=== PATIENT | female | born 1935 | race Caucasian/White ===

== ENCOUNTER → 2017-01-08 | Outpatient (CLI) | payer OTHER ==
[~2017-01-08] MED LIST: CMD1 PO; FRRG PO; FSMUNK; GLCSC500400; MULT-506 PO; TRIATAB3 PO
--- NOTE | 2017-01-08 15:57 | MAMMOGRAPHY REPORT ---
BILATERAL DIGITAL SCREENING MAMMOGRAM TOMOSYNTHESIS WITH CAD: 01/08/2017 CLINICAL HISTORY: Routine screening. Patient has no complaints. TECHNIQUE: Breast tomosynthesis in addition to standard 2D mammography was performed. Current study was also evaluated with a Computer Aided Detection (CAD) system. COMPARISON: Comparison is made to exams dated: 01/06/2016 mammogram, 01/05/2015 mammogram, 01/04/2014 mammogram, 01/01/2013 mammogram, 12/31/2011 mammogram, and 12/28/2010 mammogram - [facility]. BREAST COMPOSITION: There are scattered areas of fibroglandular density in both breasts. FINDINGS: There are mild to moderate vascular calcifications in the breasts and diffuse rodlike secr etory calcifications in the right breast. No suspicious mass, architectural distortion or cluster o f microcalcifications is seen. IMPRESSION: ACR BI-RADS CATEGORY 1: NEGATIVE There is no mammographic evidence of malignancy. A 1 year screening mammogram is recommended. The p atient will receive written notification of the results. Approximately 10% of breast cancers are not detected with mammography. A negative mammographic repor t should not delay biopsy if a clinically suggestive mass is present. Nohemi Carballo M.D. ay/:01/08/2017 14:57:00 Java Consultant: Hannah Charles M, [facility] letter sent: Normal 1/2 BI-RADS Code: ACR BI-RADS Category 1: Negative
== END | disposition home or self-care (01) ==
LOC: C.MAMM 11:22
PROVIDERS: ATTEND Family Medicine
DX: Z12.31 Encounter for screening mammogram for malignant neoplasm of breast (principal)

== ENCOUNTER → 2018-01-10 | Outpatient (CLI) | payer OTHER ==
--- NOTE | 2018-01-13 08:07 | MAMMOGRAPHY REPORT ---
BILATERAL DIGITAL SCREENING MAMMOGRAM TOMOSYNTHESIS WITH CAD: 01/10/2018 CLINICAL HISTORY: Routine screening. Patient has no complaints. TECHNIQUE: Breast tomosynthesis in addition to standard 2D mammography was performed. Current study was also evaluated with a Computer Aided Detection (CAD) system. COMPARISON: Comparison is made to exams dated: 01/08/2017 mammogram, 01/12/2016 mammogram, 01/06/2016 m ammogram, 01/05/2015 mammogram, 01/04/2014 mammogram, and 01/01/2013 mammogram - [facility]. BREAST COMPOSITION: There are scattered areas of fibroglandular density in both breasts. FINDINGS: There are moderate vascular calcifications in the breasts. Diffuse rodlike secretory calci fications in the right breast. Stable asymmetry in the medial right breast. No new suspicious mass, architectural distortion or cluster of microcalcifications is seen. IMPRESSION: ACR BI-RADS CATEGORY 1: NEGATIVE There is no mammographic evidence of malignancy. A 1 year screening mammogram is recommended. The pa tient will receive written notification of the results. Approximately 10% of breast cancers are not detected with mammography. A negative mammographic report should not delay biopsy if a clinically suggestive mass is present. Nohemi Carballo M.D. ay/:01/10/2018 14:41:14 Card Dealer: Sylvie CONNORS(Hannah)(M), [facility] letter sent: Normal 1/2 BI-RADS Code: ACR BI-RADS Category 1: Negative
== END | disposition home or self-care (01) ==
LOC: C.MAMM 11:12
PROVIDERS: ATTEND Family Medicine
DX: Z12.31 Encounter for screening mammogram for malignant neoplasm of breast (principal)

== ENCOUNTER 2021-12-31 21:54 | Inpatient (IN) ==
[2021-12-31] MEDS ORDERED: ONDANSETRON INJ 2 MG/ML 2 ML VIAL IV STA (22:04)
[2021-12-31] MEDS ORDERED: fentaNYL citrate 100 MCG/2 ML VIAL IV STA (22:04)
--- NOTE | 2021-12-31 22:15 | Emergency Department Note ---
Impression & Plan Closed fracture of right hip, Bacteria in urine, Fall from standing ED Provider Note Name: ELIER PEDROZA Age: 86 Sex: F Arrives Via: Ambulance Informant: Patient, EMS, Daughters ED Provider: Adriano Montano MD Chief Complaint: Fall with hip pain Impression: As per impressions above Medical Decision Making: Pleasant 86-year-old female with history of hypertension otherwise quite healthy who lives alone and does quite well at home. She notes she was walking around in her socks and slipped on the floor landing on her right hip. X-rays reveal a right intertrochanteric comminuted fracture consistent with exam. Her pulses and neurovascular status are intact. She was given fentanyl with vast improvement in her pain. Preoperative labs and imaging unremarkable. She does have a significant amount of bacteria in her urine given her age and a Purdy is now in place I do think that it would be reasonable to start antibiotics and thus Rocephin was started. Hospitalist was consulted for further management patient is comfortable with plan for hospitalization. I did discuss at length CT imaging of the head and after discussing risks and benefits daughter and patient with agreeing that we will hold off on getting this until hospitalist evaluates her. She has no headache, neurologic deficits nor is she on any anticoagulation. Prior Medical Record and Triage/Nursing Notes reviewed by Me Additional history obtained from chart & daughters Differentials:Fracture, dislocation, contusion, intra-abdominal, pneumothorax, intrathoracic, intracranial, neurologic, compartment syndrome, rhabdomyolysis, as well as other pathologies. Vital Signs: reviewed and remarkable for no significant abnormalities Interventions: fentanyl 50mcg IV, rocephin 1gm iv, Labs:Reviewed and remarkable for bacteria in urine Imaging:Pelvis and femur x-ray on right reveal anterior trochanteric comminuted fracture. Chest x-ray unremarkable. Reads as per radiologist EKG:Per My Interpretation: Indication Fall: NSR 96 bpm, qtc 462. No Ectopy. No Ischemia. Compared to EKG 10/29/19, no significant changes. Consults:Dr Rylan Barbosa hospitalist Plan: Disposition:Hospitalization. Condition: Good History of Present Illness:86-year-old female arrives for evaluation of right hip pain. Patient was walking through her kitchen having just taken off her slippers when she slipped and fell. She landed on her right side. She notes immediate right hip pain with a loud crack. She denies any other head injury or other traumas. She denies any headache nor neck pain. She notes she is unable to get up due to pain. Pain is worse with movement. Better with being rest. She had no medications prior to arrival. No previous injury to right hip or thigh. She denies frequent falls or generalized weakness recently. She states there was no inciting event prior to her fall other than slipping. She remembers the entire event. Patient denies being on any blood thinners. She denies any aspirin or Plavix use. Patient denies any recent chest pain, shortness breath, nausea, vomiting, back pain, urinary/bowel symptoms, headaches, neck pain, abdominal pain or other symptoms. She has had no recent bleeding or bruising. Patient states she is usually active. She has had a previous left knee replacement by Dr. Clark. ROS: See above HPI for pertinent positives & negatives. A total of 10 systems reviewed and were otherwise negative. Past Medical History:High blood pressure Past Surgical History:Left knee replacement Family History:States family is healthy Social History:Patient denies alcohol or drug use. Denies tobacco use. Home Medications:See Below Allergies:NSAIDS Vitals:Blood Pressure: 130/86, Pulse 94, RR 20, T 36.6C, O2 99% on RA Physical Exam: GENERAL: Patient is uncomfortable appearing and in moderate distress. HEAD: AT/NC EYES: No scleral icterus, unremarkable pupils. ENT: Mucous membranes moist, no nasal congestion. NECK: No masses appreciated, nomeningismus, trachea is midline. No midline TTP RESPIRATORY: No dyspnea. Clear to auscultation and equal bilaterally. No wheeze, no rhonchi. CARDIOVASCULAR: Regular rate and rhythm.No murmurs, rubs, gallops appreciated. GASTROINTESTINAL: Abdomen soft, non-tender, no peritonitis.Bowel sounds positive.No masses appreciated. BACK: No midline tenderness, no CVA tenderness EXTREMITIES: Swelling and spasm proximal right thigh with severe pain on slight movement of hip/knee. Shortened externally rotated right leg from hip down. Pulses and sensation intact distally. Otherwise normal motion all extremities, no cyanosis, no edema. NEUROLOGIC: Alert and oriented, no acute motor or sensory deficits, no focal weakness, cranial nerves grossly intact. SKIN: No rash, no jaundice, no diaphoresis. PSYCH: Appropriate GCS: 15 ED Course: Times/Reassessments: Patient is comfortable after fentanyl. She is agreeable to hospitalization. She is neurologically intact without headache Adriano Montano MD Past Med/Surg History Medical History (Updated 12/31/21 @ 23:51 by Adriano Montano MD) Encounter for pre-operative examination Food impaction of esophagus HTN (hypertension) Surgical History Knee joint replacement status Family History Other Family history non-contributory Social History Smoking Status: Never smoker Preferred Language: Estonian Visual Impairment: No Limitations Feels Safe at Home: Yes Allergies Allergies Allergy/AdvReac Type Severity Reaction Status Date / Time NSAIDS (Non-Steroidal AdvReac NOT true Unverified 12/31/21 23:07 Anti-Inflamma ADR-NO NSAIDS/Toradol per ortho [id number] 05/2012 Home Meds Home Medications Medication Instructions Recorded Confirmed multivitamin 1 tab PO DAILY #0 tab 04/24/12 12/31/21 triamterene 37.5 1 tab PO DAILY #0 tab 05/30/12 12/31/21 mg-hydrochlorothiazide 25 mg tablet Results & Data (ED) Vital Signs Vital Signs - 24 hr 12/31/21 22:03 12/31/21 22:23 12/31/21 22:58 Temperature 36.6 C Temperature Source Oral Pulse Rate 94 H Pulse Rate [Apical] 78 93 H Respiratory Rate 20 20 20 Respiratory Effort / Characteristics Non-Labored Spontaneous Non-Labored Spontaneous Non-Labored Spontaneous Respiratory Depth Normal Normal Normal Respiratory Pattern Regular Regular Blood Pressure 130/86 Blood Pressure [Right Arm] 130/86 130/86 Blood Pressure Mean 100 Blood Pressure Mean [Right Arm] 100 100 Blood Pressure Position Lying Blood Pressure Position [Right Arm] Sitting Sitting Pulse Oximetry 99 98 96 Oxygen Delivery Method Room Air Room Air Room Air Sepsis Recent Fever Within 48 Hours No Sepsis New/Unexplained Change in Mental Status No Sepsis Action Taken by Nursing No Action Required Laboratory Data Result diagrams: 12/31/21 22:11 12/31/21 22:11 Lab Results 12/31/21 12/31/21 12/31/21 Range/Units 22:11 22:11 22:11 WBC 7.40 (4.8-10.8) K/uL RBC 4.54 (4.2-5.4) M/uL Hgb 13.5 (12.0-16.0) g/dL Hct 41.3 (37-47) % MCV 91.0 (80-100) fL MCH 29.7 (25-34) pg MCHC 32.7 (32-36) g/dL RDW Std Deviation 46.1 (36.4-46.3) fL RDW Coeff of Gerson 13.9 (11.5-14.5) % Plt Count 161 (130-400) K/uL MPV 11.3 H (7.4-10.4) fL Immature Gran % (Auto) 0.1 % Neut % (Auto) 65.9 % Lymph % (Auto) 23.2 % Hyde % (Auto) 8.6 % Eos % (Auto) 1.8 % Baso % (Auto) 0.4 % Neut # (Auto) 4.87 (1.4-6.5) K/uL Lymph # (Auto) 1.72 (1.2-3.4) K/uL Hyde # (Auto) 0.64 H (0.11-0.59) K/uL Eos # (Auto) 0.13 (0-0.5) K/uL Baso # (Auto) 0.03 (0-0.2) K/uL Immature Gran # (Auto) 0.01 (0.00-0.02) K/uL PT 10.4 (9.0-12.0) Seconds INR 1.0 (0.9-1.1) APTT 22.1 (21.0-31.0) Seconds PTT Ratio 0.8 Sodium 140 (136-145) mmol/L Potassium 3.9 (3.5-5.1) mmol/L Chloride 104 (98-107) mmol/L Carbon Dioxide 28 (21-32) mmol/L Anion Gap 8 (3-11) BUN 28 H (6-23) mg/dl Creatinine 1.19 (0.6-1.2) mg/dl Est Cr Clr Drug Dosing 29.9 ml/min Est GFR ( Amer) 48.2 ml/min Est GFR (Non-Af Amer) 41.6 ml/min BUN/Creatinine Ratio 23.5 H (10-20) Glucose 173 H (70-99(Fasting)) mg/dl Calcium 9.8 (8.5-10.1) mg/dl Magnesium (1.7-2.4) mg/dl Total Bilirubin 0.5 (0.2-1.0) mg/dl AST 18 (13-39) U/L ALT 12 (7-52) U/L Alkaline Phosphatase 45 (34-104) U/L Total Protein 6.8 (6.0-8.3) gm/dl Albumin 4.1 (3.4-5.0) gm/dl Globulin 2.7 (2.5-4.0) gm/dl Albumin/Globulin Ratio 1.5 (0.9-2) Urine Color Urine Appearance (Clear) Urine pH (4.5-7.5) Ur Specific [place] (1.000-1.030) Urine Protein (Negative) Urine Glucose (UA) (Negative) Urine Ketones (Negative) Urine Blood (Negative) Urine Nitrite (Negative) Urine Bilirubin (Negative) Urine Urobilinogen (Negative) Ur Leukocyte Esterase (Negative) Urine WBC (Auto) (0-5) /hpf Urine RBC (Auto) (0-4) /hpf U Hyaline Cast (Auto) (0-5) /lpf U Epithel Cells (Auto) (0-5) /lpf Urine Bacteria (Auto) (Negative) SARS-CoV-2, RNA, NAAT (NEGATIVE) 12/31/21 12/31/21 12/31/21 Range/Units 22:11 22:11 23:09 WBC (4.8-10.8) K/uL RBC (4.2-5.4) M/uL Hgb (12.0-16.0) g/dL Hct (37-47) % MCV (80-100) fL MCH (25-34) pg MCHC (32-36) g/dL RDW Std Deviation (36.4-46.3) fL RDW Coeff of Gerson (11.5-14.5) % Plt Count (130-400) K/uL MPV (7.4-10.4) fL Immature Gran % (Auto) % Neut % (Auto) % Lymph % (Auto) % Hyde % (Auto) % Eos % (Auto) % Baso % (Auto) % Neut # (Auto) (1.4-6.5) K/uL Lymph # (Auto) (1.2-3.4) K/uL Hyde # (Auto) (0.11-0.59) K/uL Eos # (Auto) (0-0.5) K/uL Baso # (Auto) (0-0.2) K/uL Immature Gran # (Auto) (0.00-0.02) K/uL PT (9.0-12.0) Seconds INR (0.9-1.1) APTT (21.0-31.0) Seconds PTT Ratio Sodium (136-145) mmol/L Potassium (3.5-5.1) mmol/L Chloride (98-107) mmol/L Carbon Dioxide (21-32) mmol/L Anion Gap (3-11) BUN (6-23) mg/dl Creatinine (0.6-1.2) mg/dl Est Cr Clr Drug Dosing ml/min Est GFR ( Amer) ml/min Est GFR (Non-Af Amer) ml/min BUN/Creatinine Ratio (10-20) Glucose (70-99(Fasting)) mg/dl Calcium (8.5-10.1) mg/dl Magnesium 1.9 (1.7-2.4) mg/dl Total Bilirubin (0.2-1.0) mg/dl AST (13-39) U/L ALT (7-52) U/L Alkaline Phosphatase (34-104) U/L Total Protein (6.0-8.3) gm/dl Albumin (3.4-5.0) gm/dl Globulin (2.5-4.0) gm/dl Albumin/Globulin Ratio (0.9-2) Urine Color Yellow Urine Appearance Clear (Clear) Urine pH 6.5 (4.5-7.5) Ur Specific [place] 1.016 (1.000-1.030) Urine Protein Negative (Negative) Urine Glucose (UA) Negative (Negative) Urine Ketones Negative (Negative) Urine Blood Negative (Negative) Urine Nitrite Positive A (Negative) Urine Bilirubin Negative (Negative) Urine Urobilinogen Negative (Negative) Ur Leukocyte Esterase Negative (Negative) Urine WBC (Auto) 1-5 (0-5) /hpf Urine RBC (Auto) 0-4 (0-4) /hpf U Hyaline Cast (Auto) 1-5 (0-5) /lpf U Epithel Cells (Auto) 10-20 H (0-5) /lpf Urine Bacteria (Auto) 4+ H (Negative) SARS-CoV-2, RNA, NAAT NEGATIVE (NEGATIVE) Administered Medications Lactated Ringer's (Lr) 1,000 mls @ 60 mls/hr IV .[id number] ONE Stop: 01/01/22 16:28 Last Admin: 01/01/22 00:26 Dose: 60 mls/hr Documented by: [id number] Discontinued Medications Fentanyl Citrate (Fentanyl Citrate 100 Mcg/2 Ml Vial) 50 mcg IV NOW STA Stop: 12/31/21 22:05 Last Admin: 12/31/21 22:11 Dose: 50 mcg Documented by: [id number] Ceftriaxone Sodium (Rocephin) 1,000 mg in 50 mls @ 100 mls/hr IV NOW STA Stop: 01/01/22 00:03 Last Admin: 01/01/22 00:25 Dose: 100 mls/hr Documented by: [id number] Ondansetron HCl (Ondansetron Inj 2 Mg/Ml 2 Ml Vial) 4 mg IV NOW STA Stop: 12/31/21 22:05 Last Admin: 12/31/21 22:11 Dose: 4 mg Documented by: [id number] Imaging Data Radiologist's Impression: Chest X-Ray 12/31/21 22:04 XR chest 1V portable CLINICAL HISTORY: fall, hip fracture. Evaluate cardiopulmonary status COMPARISON STUDY: No previous studies for comparison. TECHNIQUE: 1 view of the chest FINDINGS: Single frontal view of the chest demonstrates the cardiomediastinal silhouette to be within normal limits. There is evidence for hiatal hernia in retrocardiac space. The lungs are clear of alveolar opacities. There is no evidence for pleural effusion. There is no evidence for vascular congestion. There is no acute osseous pathology. IMPRESSION: No acute cardiopulmonary disease. Hiatal hernia. ACT 112: Negative or not required by law. Electronically signed by: Ozzie Do M.D. 12/31/2021 10:47 PM Femur X-Ray 12/31/21 22:04 XR femur RT 2V routine CLINICAL HISTORY: right hip/femur pain. Status post fall COMPARISON STUDY: No previous studies for comparison. TECHNIQUE: AP and lateral right femur views FINDINGS: Bones: There is a comminuted, intratrochanteric fracture of the left femoral neck. The lesser trochanter is medially displaced. There is coxa varus deformity present. There is no lytic or blastic lesion. Joints: The femoral head maintains its anatomic position within the acetabulum. There is moderate to marked narrowing at the knee joint. Soft tissues: There is no focal soft tissue abnormality. There is no radiopaque foreign body. IMPRESSION: 1. Comminuted, intratrochanteric fracture of the right femoral neck with coxa varus deformity. ACT 112: Negative or not required by law. Electronically signed by: Ozzie Do M.D. 12/31/2021 10:45 PM Pelvis X-Ray 12/31/21 22:04 XR pelvis 1-2V routine CLINICAL HISTORY: fall right thigh pain. Status post fall COMPARISON STUDY: Right femur films from the same date TECHNIQUE: [A single AP radiograph was obtained. FINDINGS: There is again a comminuted, intratrochanteric fracture of the right femoral nec k. The femoral head maintains its anatomic position within the acetabulum. Coxa varus deformity is present related to the fracture. The SI joints are intact bilaterally. There is mild to moderate narrowing of the left hip joint space. The remaining visualized bones of the pelvis are intact. No focal soft tissue abnormalities identified. IMPRESSION: 1. Comminuted, intratrochanteric fracture of the right femoral neck with coxa varus deformity. ACT 112: Negative or not required by law. Electronically signed by: Ozzie Do M.D. 12/31/2021 10:47 PM Discharge Plan Visit Data Chief Complaint: Fall Stated Complaint: Fall ED Provider: Adriano Montano Discharge Problem: Closed fracture of right hip, Bacteria in urine, Fall from standing Forms Stand Alone Forms: [employer] Prescriptions Prescriptions: No Action multivitamin Tablet 1 tab PO DAILY Qty: 0 RF: 0 triamterene-hydrochlorothiazid 37.5-25 mg Tablet 1 tab PO DAILY Qty: 0 RF: 0 Referrals Referrals: Kwesi Orozco MD [Primary Care Provider] - Discharge Problem: Closed fracture of right hip Qualifiers: Encounter type: initial encounter Qualified Code(s): S72.001A - Fracture of unspecified part of neck of right femur, initial encounter for closed fracture Fall from standing Qualifiers: Encounter type: initial encounter Qualified Code(s): W19.XXXA - Unspecified fall, initial encounter
[2021-12-31 22:23] LABS: Basophils # (auto) 0.03 K/uL (0-0.2); Basophils % (auto) 0.4 %; Eosinophils # (auto) 0.13 K/uL (0-0.5); Eosinophils % (auto) 1.8 %; Hematocrit (blood only) 41.3 % (37-47); Hemoglobin 13.5 g/dL (12.0-16.0); Immature Granulocytes # (auto) 0.01 K/uL (0.00-0.02); Immature Granulocytes % (auto) 0.1 %; Lymphocytes # (auto) 1.72 K/uL (1.2-3.4); Lymphocytes % (auto) 23.2 %; Mean Corpuscular Hemoglobin 29.7 pg (25-34); Mean Corpuscular Hgb Conc 32.7 g/dL (32-36); Mean Platelet Volume 11.3 fL (7.4-10.4); Monocytes # (auto) 0.64 K/uL (0.11-0.59); Monocytes % (auto) 8.6 %; Neutrophils # (auto) 4.87 K/uL (1.4-6.5); Neutrophils % (auto) 65.9 %; Platelet Count 161 K/uL (130-400); RDW Coefficient of Variation 13.9 % (11.5-14.5); RDW Standard Deviation 46.1 fL (36.4-46.3); Red Blood Count 4.54 M/uL (4.2-5.4)
[2021-12-31 22:39] LABS: Partial Thromboplastin Ratio 0.8; Partial Thromboplastin Time 22.1 Seconds (21.0-31.0); Prothrombin Time 10.4 Seconds (9.0-12.0)
[2021-12-31 22:40] LABS: Albumin Globulin Ratio 1.5 (0.9-2); Albumin Level 4.1 gm/dl (3.4-5.0); BUN Creatinine Ratio 23.5 (10-20); Bilirubin,Total 0.5 mg/dl (0.2-1.0); Calcium 9.8 mg/dl (8.5-10.1); Creatinine Clr Calc Pharmacy 29.9 ml/min; Est GFR (African American) 48.2 ml/min; Est GFR (Non-African American) 41.6 ml/min; Globulin 2.7 gm/dl (2.5-4.0); Potassium 3.9 mmol/L (3.5-5.1); Total Protein 6.8 gm/dl (6.0-8.3)
--- NOTE | 2021-12-31 22:46 | XRay Report ---
XR femur RT 2V routine CLINICAL HISTORY: right hip/femur pain. Status post fall COMPARISON STUDY: No previous studies for comparison. TECHNIQUE: AP and lateral right femur views FINDINGS: Bones: There is a comminuted, intratrochanteric fracture of the left femoral neck. The lesser trochan ter is medially displaced. There is coxa varus deformity present. There is no lytic or blastic lesion . Joints: The femoral head maintains its anatomic position within the acetabulum. There is moderate to marked narrowing at the knee joint. Soft tissues: There is no focal soft tissue abnormality. There is no radiopaque foreign body. IMPRESSION: 1. Comminuted, intratrochanteric fracture of the right femoral neck with coxa varus deformity. ACT 112: Negative or not required by law. Electronically signed by: Ozzie Do M.D. 12/31/2021 10:45 PM
--- NOTE | 2021-12-31 22:48 | XRay Report ---
XR pelvis 1-2V routine CLINICAL HISTORY: fall right thigh pain. Status post fall COMPARISON STUDY: Right femur films from the same date TECHNIQUE: [A single AP radiograph was obtained. FINDINGS: There is again a comminuted, intratrochanteric fracture of the right femoral neck. The femoral head m aintains its anatomic position within the acetabulum. Coxa varus deformity is present related to the fracture. The SI joints are intact bilaterally. There is mild to moderate narrowing of the left hip j oint space. The remaining visualized bones of the pelvis are intact. No focal soft tissue abnormaliti es identified. IMPRESSION: 1. Comminuted, intratrochanteric fracture of the right femoral neck with coxa varus deformity. ACT 112: Negative or not required by law. Electronically signed by: Ozzie Do M.D. 12/31/2021 10:47 PM
--- NOTE | 2021-12-31 22:49 | XRay Report ---
XR chest 1V portable CLINICAL HISTORY: fall, hip fracture. Evaluate cardiopulmonary status COMPARISON STUDY: No previous studies for comparison. TECHNIQUE: 1 view of the chest FINDINGS: Single frontal view of the chest demonstrates the cardiomediastinal silhouette to be within normal li mits. There is evidence for hiatal hernia in retrocardiac space. The lungs are clear of alveolar opac ities. There is no evidence for pleural effusion. There is no evidence for vascular congestion. There is no acute osseous pathology. IMPRESSION: No acute cardiopulmonary disease. Hiatal hernia. ACT 112: Negative or not required by law. Electronically signed by: Ozzie Do M.D. 12/31/2021 10:47 PM
--- NOTE | 2021-12-31 23:04 | History & Physical Report ---
Date of Service December 31, 2021 Assessment & Plan (1) Closed fracture of right hip: Plan: Secondary to mechanical fall hypertension, stable Asymptomatic pyuria Hyperglycemia rule out DM Possible pulmonary nodule, incidental finding on CT chest from 2019 ER visit [facility] Orthopedics consult RE right hip fracture Revised Cardiac Risk Index (RCRI): 1. High-risk type of surgery (examples include vascular and any open intraperitoneal or intrathoracic procedures). No 2. History of ischemic heart disease (history of myocardial infarction or positive exercise test, current compliant of chest pain considered to be secondary to myocardial ischemia, use of nitrate therapy, or ECG with pathological Q waves; do not count prior coronary revascularization procedure unless one of the other criteria for ischemic heart disease is present). No 3. History of heart failure. No 4. History of cerebrovascular disease. No 5. Diabetes mellitus requiring treatment with insulin. No 6. Preoperative serum creatinine >2.0. No Pt has revised cardiac index score of 0 points. (Class I Risk.) 3.9% % 30-day risk of , [place], or cardiac arrest. Acceptable risk for cardiac complications resulting from prospective procedure if recommended by Orthopedics. Hold home diuretic for now while n.p.o. Hold off on additional antibiotics for now for asymptomatic pyuria. Check hemoglobin A1c. Outpatient overdue follow-up imaging for possible pulmonary nodule from 2019 CT chest DVT prophylaxis. SCDs Re: Possible procedure Recommend pharmacologic anticoagulation once bleeding risk is deemed to be minimal and negligible pending Orthopedics evaluation. Full code. Patient's daughter requesting updates for providers. Ms. Brissa Kapoor, contact #[phone]. Text document was generated using [employer] voice recognition software. It may contain grammatical or spelling errors. Kindly contact undersigned for clarification of any documentation item in question. History of Present Illness Chief Complaint: Fall, right hip pain Primary Care Provider: Kwesi Orozco MD History obtained from patient, family, and records. Medical history significant for hypertension, GERD, osteoarthritis Last confinement 2011 for elective left total knee arthroplasty. Patient was walking to her kitchen today when she slipped and fell on her right side. Achy right hip pain after patient heard a loud crack. Patient unable to get up from the floor. No head trauma, LOC, chest pain, shortness of breath. No abdominal pain or dysuria symptoms. Patient brought to the ER for evaluation. IV ceftriaxone given for pyuria. MEDICAL HISTORY: As above. Focal multilobular solid 8 mm nodule versus cluster of micronodules in the lateral basal left lower lobe. Follow-up per Fleischner Society 2017 criteria as if for an 8 mm solid nodule from CAT scan from 2019 [facility] ER visit SURGICAL HISTORY: Lipoma surgery, Ovarian cysts surgery, Bilateral tubal ligation, knee surgery, ear surgery FAMILY HISTORY: High blood pressure. DM, heart disease PERSONAL SOCIAL HISTORY: Nonsmoker. No chronic intake of alcoholic beverages. 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 Baseline Functionality : Still able to do housework at home without rest/exertional chest pain, S OB prior to injury Allergies Allergy/AdvReac Type Severity Reaction Status Date / Time NSAIDS (Non-Steroidal AdvReac NOT true Unverified 12/31/21 23:07 Anti-Inflamma ADR-NO NSAIDS/Toradol per ortho [id number] 05/2012 Home Medications Medication Instructions Recorded Confirmed Type multivitamin 1 tab PO DAILY #0 tab 04/24/12 12/31/21 History triamterene 37.5 1 tab PO DAILY #0 tab 05/30/12 12/31/21 History mg-hydrochlorothiazide 25 mg tablet Past Med/Surg History Medical History Encounter for pre-operative examination Food impaction of esophagus HTN (hypertension) Surgical History Knee joint replacement status Family History Other Family history non-contributory Social History Smoking Status: Never smoker Second Hand Exposure: No; Do You Dip or Chew Tobacco: No; Tobacco Cessation Education Requested by Patient: No Hx Alcohol Use: Yes Alcohol type: wine Hx Substance Use: No Preferred Language: Turkmen Communication Ability: Effective Visual Impairment: No Limitations Principal Ios Developer Required: No Beliefs That Will Affect Care: None Current Living Situation: Alone Other Information That Helps Us Care for You: No Feels Safe at Home: Yes Safety Concerns: Feels Safe At This Time Assistive Devices: Glasses and Hearing Aid - Right Review of Systems Review of Systems: As per HPI, all 10 systems reviewed, all other ROS negative Physical Exam Physical Exam: GENERAL: Comfortable, pleasant, no respiratory distress SKIN: Normal color, warm HEENT: [place] palpebral conjunctivae, no ptosis, dry buccal mucosa NECK : Supple, no tenderness CHEST : CTA, no tenderness HEART : RRR, no obvious murmurs ABDOMEN: Some distention, nontender EXTREMITIES : min LE swelling, right hip rotation and tenderness NEUROLOGIC : Coherent, no facial asymmetry, no other gross focality Results & Data Results & Data ([facility]) Vital Signs (Past 12 Hours) Vital Signs Temp Pulse Pulse Resp BP BP Pulse Ox 12/31/21 22:58 93 H 20 130/86 96 12/31/21 22:23 78 20 130/86 98 12/31/21 22:03 36.6 C 94 H 20 130/86 99 Laboratory Results Laboratory Results WBC 10.53 K/uL (4.8-10.8) 01/01/22 06:39 RBC 3.91 M/uL (4.2-5.4) L 01/01/22 06:39 Hgb 11.4 g/dL (12.0-16.0) L 01/01/22 06:39 Hct 34.9 % (37-47) L 01/01/22 06:39 MCV 89.3 fL (80-100) 01/01/22 06:39 MCH 29.2 pg (25-34) 01/01/22 06:39 MCHC 32.7 g/dL (32-36) 01/01/22 06:39 RDW Std Deviation 44.8 fL (36.4-46.3) 01/01/22 06:39 RDW Coeff of [place] 13.8 % (11.5-14.5) 01/01/22 06:39 Plt Count 145 K/uL (130-400) 01/01/22 06:39 MPV 11.3 fL (7.4-10.4) H 01/01/22 06:39 Immature Gran % (Auto) 0.2 % 01/01/22 06:39 Neut % (Auto) 83.5 % 01/01/22 06:39 Lymph % (Auto) 9.5 % 01/01/22 06:39 [place] % (Auto) 6.6 % 01/01/22 06:39 Eos % (Auto) 0.0 % 01/01/22 06:39 Baso % (Auto) 0.2 % 01/01/22 06:39 Neut # (Auto) 8.80 K/uL (1.4-6.5) H 01/01/22 06:39 Lymph # (Auto) 1.00 K/uL (1.2-3.4) L 01/01/22 06:39 [place] # (Auto) 0.69 K/uL (0.11-0.59) H 01/01/22 06:39 Eos # (Auto) 0.00 K/uL (0-0.5) 01/01/22 06:39 Baso # (Auto) 0.02 K/uL (0-0.2) 01/01/22 06:39 Immature Gran # (Auto) 0.02 K/uL (0.00-0.02) 01/01/22 06:39 PT 10.4 Seconds (9.0-12.0) 12/31/21 22:11 INR 1.0 (0.9-1.1) 12/31/21 22:11 APTT 22.1 Seconds (21.0-31.0) 12/31/21 22:11 PTT Ratio 0.8 12/31/21 22:11 Sodium 140 mmol/L (136-145) 12/31/21 22:11 Potassium 3.9 mmol/L (3.5-5.1) 12/31/21 22:11 Chloride 104 mmol/L (98-107) 12/31/21 22:11 Carbon Dioxide 28 mmol/L (21-32) 12/31/21 22:11 Anion Gap 8 (3-11) 12/31/21 22:11 BUN 28 mg/dl (6-23) H 12/31/21 22:11 Creatinine 1.19 mg/dl (0.6-1.2) 12/31/21 22:11 Est Cr Clr Drug Dosing 29.9 ml/min 12/31/21 22:11 Est GFR ( Amer) 48.2 ml/min 12/31/21 22:11 Est GFR (Non-Af Amer) 41.6 ml/min 12/31/21 22:11 BUN/Creatinine Ratio 23.5 (10-20) H 12/31/21 22:11 Glucose 173 mg/dl (70-99(Fasting)) H 12/31/21 22:11 Estimat Average Glucose 123 mg/dl 12/31/21 22:04 Hemoglobin A1c 5.9 % (4.5-5.6) H 12/31/21 22:04 Calcium 9.8 mg/dl (8.5-10.1) 12/31/21 22:11 Magnesium 1.9 mg/dl (1.7-2.4) 12/31/21 22:11 Total Bilirubin 0.5 mg/dl (0.2-1.0) 12/31/21 22:11 AST 18 U/L (13-39) 12/31/21 22:11 ALT 12 U/L (7-52) 12/31/21 22:11 Alkaline Phosphatase 45 U/L (34-104) 12/31/21 22:11 Total Protein 6.8 gm/dl (6.0-8.3) 12/31/21 22:11 Albumin 4.1 gm/dl (3.4-5.0) 12/31/21 22:11 Globulin 2.7 gm/dl (2.5-4.0) 12/31/21 22:11 Albumin/Globulin Ratio 1.5 (0.9-2) 12/31/21 22:11 Urine Color Yellow 12/31/21 23:09 Urine Appearance Clear (Clear) 12/31/21 23:09 Urine pH 6.5 (4.5-7.5) 12/31/21 23:09 Ur Specific [place] 1.016 (1.000-1.030) 12/31/21 23:09 Urine Protein Negative (Negative) 12/31/21 23:09 Urine Glucose (UA) Negative (Negative) 12/31/21 23:09 Urine Ketones Negative (Negative) 12/31/21 23:09 Urine Blood Negative (Negative) 12/31/21 23:09 Urine Nitrite Positive (Negative) A 12/31/21 23:09 Urine Bilirubin Negative (Negative) 12/31/21 23:09 Urine Urobilinogen Negative (Negative) 12/31/21 23:09 Ur Leukocyte Esterase Negative (Negative) 12/31/21 23:09 Urine WBC (Auto) 1-5 /hpf (0-5) 12/31/21 23:09 Urine RBC (Auto) 0-4 /hpf (0-4) 12/31/21 23:09 U Hyaline Cast (Auto) 1-5 /lpf (0-5) 12/31/21 23:09 U Epithel Cells (Auto) 10-20 /lpf (0-5) H 12/31/21 23:09 Urine Bacteria (Auto) 4+ (Negative) H 12/31/21 23:09 SARS-CoV-2, RNA, NAAT NEGATIVE (NEGATIVE) 12/31/21 22:11 Blood Type A Positive 01/01/22 06:39 Antibody Screen NEGATIVE 01/01/22 06:39 Impressions Chest X-Ray 12/31/21 22:04 XR chest 1V portable CLINICAL HISTORY: fall, hip fracture. Evaluate cardiopulmonary status COMPARISON STUDY: No previous studies for comparison. TECHNIQUE: 1 view of the chest FINDINGS: Single frontal view of the chest demonstrates the cardiomediastinal silhouette to be within normal limits. There is evidence for hiatal hernia in retrocardiac space. The lungs are clear of alveolar opacities. There is no evidence for pleural effusion. There is no evidence for vascular congestion. There is no acute osseous pathology. IMPRESSION: No acute cardiopulmonary disease. Hiatal hernia. ACT 112: Negative or not required by law. Electronically signed by: Ozzie Do M.D. 12/31/2021 10:47 PM Femur X-Ray 12/31/21 22:04 XR femur RT 2V routine CLINICAL HISTORY: right hip/femur pain. Status post fall COMPARISON STUDY: No previous studies for comparison. TECHNIQUE: AP and lateral right femur views FINDINGS: Bones: There is a comminuted, intratrochanteric fracture of the left femoral neck. The lesser trochanter is medially displaced. There is coxa varus deformity present. There is no lytic or blastic lesion. Joints: The femoral head maintains its anatomic position within the acetabulum. There is moderate to marked narrowing at the knee joint. Soft tissues: There is no focal soft tissue abnormality. There is no radiopaque foreign body. IMPRESSION: 1. Comminuted, intratrochanteric fracture of the right femoral neck with coxa varus deformity. ACT 112: Negative or not required by law. Electronically signed by: Ozzie Do M.D. 12/31/2021 10:45 PM Pelvis X-Ray 12/31/21 22:04 XR pelvis 1-2V routine CLINICAL HISTORY: fall right thigh pain. Status post fall COMPARISON STUDY: Right femur films from the same date TECHNIQUE: [A single AP radiograph was obtained. FINDINGS: There is again a comminuted, intratrochanteric fracture of the right femoral neck. The femoral head maintains its anatomic position within the acetabulum. Coxa varus deformity is present related to the fracture. The SI joints are intact bilaterally. There is mild to moderate narrowing of the left hip joint space. The remaining visualized bones of the pelvis are intact. No focal soft tissue abnormalities identified. IMPRESSION: 1. Comminuted, intratrochanteric fracture of the right femoral neck with coxa varus deformity. ACT 112: Negative or not required by law. Electronically signed by: Ozzie Do M.D. 12/31/2021 10:47 PM Diagnostic Findings EKG as per interpretation: Rate 95, NSR, LAD, LAFB, T wave abnormalities inferior leads (1) Closed fracture of right hip Encounter type: initial encounter Qualified Code(s): S72.001A - Fracture of unspecified part of neck of right femur, initial encounter for closed fracture
[2021-12-31 23:22] LABS: Appearance Urine Clear (Clear); Bacteria Urine Automated 4+ (Negative); Bilirubin Urine Negative (Negative); Blood Urine Negative (Negative); Color Urine Yellow; Glucose Urine UA Negative (Negative); Ketones Urine Negative (Negative); Leukocyte Esterase Urine Negative (Negative); Nitrite Urine Positive (Negative); Protein Urine Negative (Negative); RBC Urine Automated 0-4 /hpf (0-4); Specific Gravity Urine 1.016 (1.000-1.030); Urobilinogen Urine Negative (Negative); pH Urine 6.5 (4.5-7.5)
[2021-12-31] MEDS ORDERED: cefTRIAXone SODIUM 1,000 MG/50 ML BAG IV STA (23:34)
[2021-12-31] MEDS ORDERED: LACTATED RINGER'S 1,000 ML IV ONE (23:49)
[2021-12-31] MEDS ORDERED: traMADol HCL 50 MG TABLET PO PRN (23:54)
[2021-12-31] MEDS ORDERED: PROMETHAZINE HCL 12.5 MG in SODIUM CHLORIDE 0.9% 50 ML IV PRN (23:54)
[2021-12-31] MEDS ORDERED: MoRPHine SULFATE 2 MG/ML CARP IV PRN (23:54)
[2021-12-31] MEDS ORDERED: ACETAMINOPHEN 325 MG TAB PO PRN (23:54)
[2022-01-01] MEDS ORDERED: bisacodyL 10 MG SUPP PR PRN (00:08)
[2022-01-01] MEDS ORDERED: NALOXONE HCL 0.4 MG/1 ML VIAL/CARP IV PRN ×2 (00:08→15:58)
[2022-01-01 07:20] LABS: Basophils # (auto) 0.02 K/uL (0-0.2); Basophils % (auto) 0.2 %; Hematocrit (blood only) 34.9 % (37-47); Hemoglobin 11.4 g/dL (12.0-16.0); Immature Granulocytes # (auto) 0.02 K/uL (0.00-0.02); Immature Granulocytes % (auto) 0.2 %; Lymphocytes % (auto) 9.5 %; Mean Corpuscular Hemoglobin 29.2 pg (25-34); Mean Corpuscular Hgb Conc 32.7 g/dL (32-36); Mean Corpuscular Volume 89.3 fL (80-100); Mean Platelet Volume 11.3 fL (7.4-10.4); Monocytes # (auto) 0.69 K/uL (0.11-0.59); Monocytes % (auto) 6.6 %; Neutrophils % (auto) 83.5 %; Platelet Count 145 K/uL (130-400); RDW Coefficient of Variation 13.8 % (11.5-14.5); RDW Standard Deviation 44.8 fL (36.4-46.3); Red Blood Count 3.91 M/uL (4.2-5.4); White Blood Count 10.53 K/uL (4.8-10.8)
[2022-01-01] MEDS: MULTIVITAMIN TAB PO SCH (07:28)
[2022-01-01 07:42] LABS: Estimated Average Glucose 123 mg/dl; Hemoglobin A1C 5.9 % (4.5-5.6)
--- NOTE | 2022-01-01 10:59 | Orthopedic Consultation ---
Date of Service January 01, 2022 Assessment & Plan (1) Closed fracture of right hip: Time was spent at her bedside describing the diagnosis and possible treatments. I did recommend intramedullary nail fixation of the right hip. She understands the risk, benefits, and alternatives to procedures like to proceed. Time was spent scribed procedure and post expectations. I called her daughter also left a message. Radha seems to be able to make her own decisions. The decision was made with for surgery and she elected to proceed. She is currently n.p.o. We will plan on doing intramedullary nail fixation of her right hip later this afternoon. History of Present Illness Reason for Consultation: Right intertrochanteric hip fracture. Requesting Physician: . Attending Physician: Maren Norris MD Radha is a pleasant 86-year-old female who lives in a single home by herself. She is a community ambulator without assistance. She does have friends and family nearby. She was ambulating in her kitchen yesterday when she slipped and fell. She had significant right hip pain. She was brought to the emergency room where radiographs demonstrated an intertrochanteric fracture of the right hip. She was admitted to the medical service. Orthopedics was consulted to evaluate and treat. Allergies Allergy/AdvReac Type Severity Reaction Status Date / Time NSAIDS (Non-Steroidal AdvReac NOT true Unverified 12/31/21 23:07 Anti-Inflamma ADR-NO NSAIDS/Toradol per ortho [id number] 05/2012 Home Medications Medication Instructions Recorded Confirmed Type multivitamin 1 tab PO DAILY #0 tab 04/24/12 12/31/21 History triamterene 37.5 1 tab PO DAILY #0 tab 05/30/12 12/31/21 History mg-hydrochlorothiazide 25 mg tablet Past Med/Surg History Medical History Encounter for pre-operative examination Food impaction of esophagus HTN (hypertension) Surgical History Knee joint replacement status Family History Other Family history non-contributory Social History (Reviewed 01/01/22 @ 10:57 by GARTH Levin Smoking Status: Never smoker Second Hand Exposure: No; Do You Dip or Chew Tobacco: No; Tobacco Cessation Education Requested by Patient: No Hx Alcohol Use: Yes Alcohol type: wine Hx Substance Use: No Preferred Language: Indonesian Communication Ability: Effective Visual Impairment: No Limitations Australian Rules Footballer Required: No Beliefs That Will Affect Care: None Current Living Situation: Alone Other Information That Helps Us Care for You: No Feels Safe at Home: Yes Safety Concerns: Feels Safe At This Time Assistive Devices: Glasses and Hearing Aid - Right Review of Systems All systems reviewed & are unremarkable except as noted in HPI & below. Physical Exam On physical examination of her right hip, the right leg is shortened and externally rotated. There are no abrasions, lesions, or lacerations of the skin. Constitutional WD/WN, vitals as above Eyes PERRL, conjunctivae normal, anicteric sclerae ENMT external ear and nose normal, oropharynx normal Neck trachea midline, no thyromegaly Respiratory normal respiratory effort Cardiovascular RRR, no murmur, no edema Gastrointestinal (Abdomen) normal bowel sounds, soft, nontender, no hepatosplenomegaly Psychiatric A+Ox3, euthymic affect Results & Data Results & Data Laboratory Results . Diagnostic Findings X-rays of the right hip and pelvis were reviewed. She has a displaced right trochanteric hip fracture. PG Care Time/CCT Total # of Minutes Spent Total Time Spent with Patient: Total time spent is greater than 50% in coordination of care (as documented) at patient's floor/unit and/or counseling patient: Coding Level of Care Code 80055 Inpt Consult Level 4 (57 - DECISION FOR SURGERY) Diagnoses Closed fracture of right hip S72.001A Encounter type: initial encounter (1) Closed fracture of right hip Encounter type: initial encounter Qualified Code(s): S72.001A - Fracture of unspecified part of neck of right femur, initial encounter for closed fracture
--- NOTE | 2022-01-01 13:46 | History & Physical Bridge Note ---
Date of Service January 01, 2022 History & Physical Bridge Note I have examined the patient, reviewed the History & Physical and in the interval since the performance of the History & Physical I have noted the following changes of clinical significance: no changes noted
[2022-01-01] MEDS ORDERED: fentaNYL citrate 100 MCG/2 ML VIAL ONE ×2 (14:12→16:44)
[2022-01-01] MEDS ORDERED: LIDOCAINE 2% 2 ML VIAL/AMP(20MG/ML) INFIL ONE (14:12)
[2022-01-01] MEDS ORDERED: PROPOFOL IV EMULSION 10 MG/ML 20 ML VIAL IV ONE (14:12)
--- NOTE | 2022-01-01 14:46 | Anesthesiology Consultation ---
Date of Service January 01, 2022 Assessment & Plan Chart Review Chart Review: Acceptable Risk for Surgery and Patient NOT seen in Pre Admission Testing Consults Requested none ASA ASA3 Proposed Anesthesia Anesthesia Type: General History Surgery Operation Date: 01/01/22 13:05 Proposed Procedures p Right Long Troch Nail - Shawn Oconnell DO Height/Weight Height: 4 ft 11 in Weight: 66.678 kg Allergies Allergy/AdvReac Type Severity Reaction Status Date / Time NSAIDS (Non-Steroidal AdvReac NOT true Unverified 12/31/21 23:07 Anti-Inflamma ADR-NO NSAIDS/Toradol per ortho [id number] 05/2012 Medications Home Medications Medication Instructions Recorded Confirmed Last Taken multivitamin 1 tab PO DAILY #0 tab 04/24/12 12/31/21 10/27/19 triamterene 37.5 1 tab PO DAILY #0 tab 05/30/12 12/31/21 10/27/19 mg-hydrochlorothiazide 25 mg tablet Active Medications Generic Name Dose Route Start Last Admin Trade Name Freq PRN Reason Stop Dose Admin Lactated Ringer's 1,000 mls @ 60 mls/hr 12/31/21 23:49 01/01/22 00:26 Lr IV 01/01/22 16:28 60 mls/hr .[id number] ONE Administration Multivitamins 1 tab 01/01/22 09:00 01/01/22 07:28 Multivitamin Tab PO 01/31/22 08:59 Not Given QAM JEFF Past Medical History Medical History Encounter for pre-operative examination Food impaction of esophagus HTN (hypertension) Exercise / Class Metabolic Activity III < 4 Walking/Shop/Light housework Past Family History Family History Other Family history non-contributory Past Surgical History Surgical History Knee joint replacement status Past Anesthesia History No Hx of Anesthesia Complications and No Family Hx of Anesthesia Complications History of PONV No Hx of PONV and No Hx of Motion Sickness Social History Smoking Status: Never smoker Do You Dip or Chew Tobacco: No Hx Alcohol Use: Yes Alcohol type: wine alcohol intake frequency: other Alcohol Intake Frequency Comment: 1 small glass of wine a week Hx Substance Use: No substance use type: does not use Physical Exam Vital Signs Last Vital Signs Temp 36.9 C 01/01/22 07:45 Pulse 90 01/01/22 07:45 Resp 18 01/01/22 07:45 BP 130/72 01/01/22 07:45 Pulse Ox 98 01/01/22 07:45 Testing Laboratory Results 01/01/22 06:39 12/31/21 22:11 PT 10.4 Seconds (9.0-12.0) 12/31/21 22:11 INR 1.0 (0.9-1.1) 12/31/21 22:11 APTT 22.1 Seconds (21.0-31.0) 12/31/21 22:11 Hemoglobin A1c 5.9 % (4.5-5.6) H 12/31/21 22:04 Urine Color Yellow 12/31/21 23:09 Urine Appearance Clear (Clear) 12/31/21 23:09 Urine pH 6.5 (4.5-7.5) 12/31/21 23:09 Ur Specific [place] 1.016 (1.000-1.030) 12/31/21 23:09 Urine Protein Negative (Negative) 12/31/21 23:09 Urine Glucose (UA) Negative (Negative) 12/31/21 23:09 Urine Ketones Negative (Negative) 12/31/21 23:09 Urine Nitrite Positive (Negative) A 12/31/21 23:09 Ur Leukocyte Esterase Negative (Negative) 12/31/21 23:09 Urine WBC (Auto) 1-5 /hpf (0-5) 12/31/21 23:09 Urine RBC (Auto) 0-4 /hpf (0-4) 12/31/21 23:09 U Hyaline Cast (Auto) 1-5 /lpf (0-5) 12/31/21 23:09 U Epithel Cells (Auto) 10-20 /lpf (0-5) H 12/31/21 23:09 Urine Bacteria (Auto) 4+ (Negative) H 12/31/21 23:09 Blood Type A Positive 01/01/22 06:39 Antibody Screen NEGATIVE 01/01/22 06:39 Electrocardiogram Date: 12/31/21 Findings: + NSR @ (at 96) Chest X-Ray Date: 12/31/21 Findings: + NAD pt has hiatal hernia
[2022-01-01] MEDS ORDERED: ONDANSETRON INJ 2 MG/ML 2 ML VIAL ONE (14:50)
[2022-01-01] MEDS ORDERED: ceFAZolin 2,000 MG/15 ML IV PUSH IV ONE (14:50)
[2022-01-01] MEDS ORDERED: ceFAZolin 2000MG 2,000 MG/15 ML SYR IV ONE (14:52)
[2022-01-01] MEDS ORDERED: ONDANSETRON INJ 2 MG/ML 2 ML VIAL IV PRN (15:58)
[2022-01-01] MEDS ORDERED: PROMETHAZINE HCL 12.5 MG in SODIUM CHLORIDE 0.9% 50 ML IV PRN (15:58)
[2022-01-01] MEDS ORDERED: fentaNYL citrate 100 MCG/2 ML VIAL IV PRN (15:58)
[2022-01-01] MEDS ORDERED: ePHEDrine sulfate 50 MG/ML AMP IV PRN (15:58)
[2022-01-01] MEDS ORDERED: ATROPINE SULFATE 0.1 MG/ML 10ML SYR IV PRN (15:58)
[2022-01-01] MEDS ORDERED: LABETALOL HCL IV 5 MG/ML 20ML IV PRN (15:58)
[2022-01-01] MEDS ORDERED: BUPIVACAINE/EPINEPHRINE 0.25% 1:200,000 30 ML VIAL ONE (15:59)
--- NOTE | 2022-01-01 16:57 | Hospitalist Progress Note ---
Date of Service January 01, 2022 Assessment & Plan Plan: Right hip fracture -surgical management per orthopedic surgery -Pre-op risk assessment per H&P -will need PT/OT post operatively -Pain management: start acetaminophen 650mg TID, gabapentin 100mg BID, tramadol PRN for mod-severe pain -start DVT ppx when cleared by ortho HTN -hold diuretics preoperatively. can resume after surgery if BP elevated History of lung nodules -OP follow up Admission and Anticipated Discharge Date Admission Date: December 31, 2021 Subjective Went for OR today. Feels well, reports pain is tolerable Physical Exam Physical Exam: laying in bed, in good spirits, no acute distress Respiratory: breathing comfortably on room air, no wheezing/rhonchi/rales Cardiovascular: regular rate and rhythm, no murmurs/rubs/gallops Gastrointestinal (Abdomen): soft, non tender Musculoskeletal: no edema, right hip bandages--clean/dry/intact distal extremities are warm Neurologic: awake, alert Results & Data Results & Data ([facility]) Vital Signs (Past 12 Hours) Vital Signs Temp Pulse Resp BP Pulse Ox 01/01/22 07:45 36.9 C 90 18 130/72 98 Laboratory Results Short CBC 12/31/21 01/01/22 Range/Units 22:11 06:39 WBC 7.40 10.53 (4.8-10.8) K/uL Hgb 13.5 11.4 L (12.0-16.0) g/dL Hct 41.3 34.9 L (37-47) % Plt Count 161 145 (130-400) K/uL BMP 12/31/21 22:11 Sodium 140 Potassium 3.9 Chloride 104 Carbon Dioxide 28 BUN 28 H Creatinine 1.19 Glucose 173 H Calcium 9.8 Liver Function 12/31/21 Range/Units 22:11 Total Bilirubin 0.5 (0.2-1.0) mg/dl AST 18 (13-39) U/L ALT 12 (7-52) U/L Alkaline Phosphatase 45 (34-104) U/L Albumin 4.1 (3.4-5.0) gm/dl Urine 12/31/21 Range/Units 23:09 Urine Color Yellow Urine Appearance Clear (Clear) Urine pH 6.5 (4.5-7.5) Ur Specific [place] 1.016 (1.000-1.030) Urine Protein Negative (Negative) Urine Glucose (UA) Negative (Negative) Medications Administered Current Inpatient Medications Acetaminophen (Acetaminophen 325 Mg Tab) 650 mg PO Q4H PRN PRN Reason: pain/fever Stop: 01/30/22 23:53 Atropine Sulfate (Atropine Sulfate 0.1 Mg/Ml 10ml Syr) 0.5 mg IV Q1M PRN PRN Reason: PACU Use-HR<40 &/or Bradycardi Stop: 01/01/22 23:58 Bisacodyl (Bisacodyl 10 Mg Supp) 10 mg SD DAILY PRN PRN Reason: Constipation Stop: 01/31/22 00:07 Ephedrine Sulfate (Ephedrine Sulfate 50 Mg/Ml Amp) 5 mg IV Q5M PRN PRN Reason: PACU Use Only-SBP<90 mmHg Stop: 01/01/22 23:58 Fentanyl Citrate (Fentanyl Citrate 100 Mcg/2 Ml Vial) 25 mcg IV Q5M PRN PRN Reason: PACU Use Only-Pain Stop: 01/01/22 23:58 Promethazine HCl 12.5 mg/ (Sodium Chloride) 50.5 mls @ 202 mls/hr IV Q6H PRN PRN Reason: Nausea And Vomiting Stop: 01/30/22 23:53 Promethazine HCl 12.5 mg/ (Sodium Chloride) 50.5 mls @ 204 mls/hr IV ONCE PRN PRN Reason: PACU Use Only-Nausea/Vomiting Stop: 01/01/22 23:58 Labetalol HCl (Labetalol Hcl Iv 5 Mg/Ml 20ml) 5 mg IV Q5M PRN PRN Reason: PACU Use-SBP>160 or DBP>100 Stop: 01/01/22 23:58 Morphine Sulfate (Morphine Sulfate 2 Mg/Ml Carp) 2 mg IV Q3H PRN PRN Reason: Pain Stop: 01/14/22 23:53 Multivitamins (Multivitamin Tab) 1 tab PO QAM JEFF Stop: 01/31/22 08:59 Last Admin: 01/01/22 07:28 Dose: Not Given Documented by: Naloxone HCl (Naloxone Hcl 0.4 Mg/1 Ml Vial/Carp) 0.1 mg IV UD PRN PRN Reason: Opiate Overdose Stop: 01/31/22 00:07 Naloxone HCl (Naloxone Hcl 0.4 Mg/1 Ml Vial/Carp) 0.2 mg IV Q2M PRN PRN Reason: PACU Use Only-Opiate Reversal Stop: 01/01/22 23:58 Ondansetron HCl (Ondansetron Inj 2 Mg/Ml 2 Ml Vial) 4 mg IV ONCE PRN PRN Reason: PACU Use Only-Nausea/Vomiting Stop: 01/01/22 23:58 Tramadol HCl (Tramadol Hcl 50 Mg Tablet) 25 - 50 mg PO Q4H PRN PRN Reason: Pain Stop: 01/30/22 23:53
[2022-01-01] MEDS ORDERED: ePHEDrine sulfate 50 MG/ML AMP ONE (17:14)
[2022-01-01] MEDS ORDERED: PHENYLEPHRINE 100MCG/ML 5ML SYR ONE (17:14)
[2022-01-01] MEDS ORDERED: DEXAMETHASONE SOD INJ 4 MG/ML VIAL ONE (17:14)
[2022-01-01] MEDS ORDERED: oxyCODONE HCL IR 5 MG TAB (IMMEDIATE RELEASE) PO PRN (17:39)
[2022-01-01] MEDS ORDERED: traMADol HCL 50 MG TABLET PO PRN (17:39)
--- NOTE | 2022-01-01 17:45 | Operative Report ---
PG Post Operative Report Pre & Post Diagnosis Operation Date: 01/01/22 13:05 Pre-Op Diagnosis: Closed fracture of right hip Post-Op Diagnosis: Closed fracture of right hip I identified the patient and participated in the time-out.: Yes Procedure Operation Date: 01/01/22 13:05 Actual Procedures p Intramedullary Nail Fixation of Right Hip(Right) - Shawn Oconnell DO Surgeon Shawn Oconnell DO Yarding Supervisor Shawn Hassan PAC Estimated Blood Loss 100 Findings Consistent with Post-Op Diagnosis Specimens None Complications none Disposition Disposition: Recovery Room Indications Radha is a pleasant 86-year-old female who slipped and fell in her kitchen yesterday. She sustained a right intertrochanteric hip fracture. She was admitted to the medical service. Orthopedics was consulted. After discussions at bedside, she elected proceed with intramedullary nail fixation of the right hip. Description of Procedure On January 01, 2022 Radha was brought down from her hospital room to the preoperative holding area. The operative extremity identified and signed. She was given a preoperative antibiotic. She was taken back to the operating room and put under general anesthesia. She was then transferred to a fracture table. The right hip was brought off the traction. Fluoroscopy was used to obtain anatomic reduction of the fracture. The right hip was then prepped and draped in sterile fashion. A timeout was done. The patient and the operative extremity was properly identified. A longitudinal incision was made directly over the greater trochanter. Dissection was taken down through the fascia. A guidepin was placed from the center of the greater trochanter down the shaft of the femur. An 18 mm opening reamer was then sent down the femoral shaft. A ball-tipped guidewire was then sent down the femoral shaft to the knee. Fluoroscopic images were used to ensure anatomic placement of the guidepin. The Synthes TFN nail measured to be 340 mm. An 11 x 340 mm Synthes TFN nail was then impacted into place. Proper position was checked on orthogonal fluoroscopic images. An outrigger was placed. The cannula was advanced through a small incision laterally to the lateral cortex of the femur. A guidepin was then sent into the center center position of the femoral head. The lateral cortex was then drilled and the screw was reamed. The final 90 mm helical blade was then impacted into place. The helical blade was then locked and the fracture was compressed. Final fluoroscopic images showed near anatomic alignment. Attention was turned to the distal femur. A perfect seminole technique was used distally. A 42 mm screw was placed. Final fluoroscopic images were obtained. The wounds were then irrigated. The deep fascial layer was closed with #1 Vicryl. Skin was closed w ith 2-0 Vicryl and jamal. A soft dressing was placed. She was then extubated and transferred to a [facility]. She was taken to the post anesthesia care unit in stable condition. She tolerated the procedure well. Shawn Hassan PA-C, was present for the entire procedure. He was critical for patient positioning, prepping, draping, retraction exposure, wound closure and application of sterile dressing. I attest to the content of the Intraoperative Record and any orders documented therein. Any exceptions are noted below.
--- NOTE | 2022-01-01 18:05 | Fluoroscopy Report ---
FL hip RT 2-3V HISTORY: 86 years-old Female RT LONG TROCH NAIL acute fracture of the right hip COMPARISON: Right femur radiographs 12/31/2021 TECHNIQUE: 4 spot fluoroscopic images of the right hip were obtained utilizing 92.6 seconds fluorosco py time. FINDINGS: Intratrochanteric nail with medullary terrance fixating the acute intertrochanteric fracture. There is imp roved alignment with mild persistent medial displacement of the lesser trochanteric fracture fragment . Right hip osteoarthritis. Expected postoperative soft tissue swelling with deep tissue air. No unex pected opaque foreign body. IMPRESSION: Fluoroscopic assistance as above. ACT 112: Negative or not required by law. The above report was generated using voice recognition software. It may contain grammatical, syntax o r spelling errors. Electronically signed by: Dariel Cagle M.D. 01/01/2022 6:03 PM
--- NOTE | 2022-01-01 18:12 | Anesthesiology Progress Note ---
Date of Service January 01, 2022 Anesthesia Post Procedure Vital Signs Vital Signs: Temp Pulse Pulse Resp BP BP Pulse Ox 01/01/22 18:05 36.8 C 96 H 25 H 139/76 97 01/01/22 17:55 96 H 20 144/77 H 97 01/01/22 17:45 100 H 26 H 128/70 98 01/01/22 17:39 36.5 C 90 20 158/79 H 100 01/01/22 07:45 36.9 C 90 18 130/72 98 01/01/22 01:58 36.3 C L 66 18 131/80 96 01/01/22 01:35 101 H 18 140/80 94 01/01/22 01:00 101 H 17 140/80 95 01/01/22 00:30 103 H 27 H 96 01/01/22 00:00 103 H 100 H 18 137/67 137/67 96 12/31/21 23:30 99 H 19 128/74 97 12/31/21 23:12 94 H 15 97 12/31/21 23:00 92 H 19 96 12/31/21 22:58 93 H 20 130/86 96 12/31/21 22:32 91 H 23 97 12/31/21 22:23 78 20 130/86 98 12/31/21 22:05 93 H 19 98 12/31/21 22:03 36.6 C 94 H 20 130/86 99 Pain Intensity Right Hip: Pain Intensity: 2 Transfer of Care Handoff Completed per policy Notes Mental Status: alert / awake / arousable Patient Amnestic to Procedure: Yes Nausea / Vomiting: adequately controlled Pain: adequately controlled Airway Patency, RR, SpO2: stable & adequate BP & HR: stable & adequate Hydration State: stable & adequate Anesthetic Complications: no major complications apparent
[2022-01-01] MEDS: ASPIRIN 81 MG ECTAB PO SCH (20:25)
[2022-01-01] MEDS: ACETAMINOPHEN 325 MG TAB PO SCH (20:26)
[2022-01-01] MEDS: GABAPENTIN 100 MG CAP PO SCH (20:28)
--- NOTE | 2022-01-01 22:33 | Electrocardiogram Report ---
Test Reason : Blood Pressure : / mmHG Vent. Rate : 096 BPM Atrial Rate : 096 BPM P-R Int : 144 ms QRS Dur : 080 ms QT Int : 366 ms P-R-T Axes : 037 002 000 degrees QTc Int : 462 ms Poor data quality, interpretation may be adversely affected Normal sinus rhythm Normal ECG When compared with ECG of 29-OCT-2019 09:44, No significant change was found Confirmed by Jay Elena ([id number]) on 01/01/2022 10:33:00 PM Referred By: REFERRED SELF Confirmed By:Jay Elena
--- NOTE | 2022-01-02 06:36 | Orthopedic Progress Note ---
Date of Service January 02, 2022 Assessment & Plan (1) Closed fracture of right hip: Overall she is doing very well. She denies any much pain in the right hip. She is already been up and ambulating and is sitting in a chair at bedside. I have her on aspirin 81 mg twice a day for DVT prophylaxis. As long as she is up and ambulating and participating with therapy I think this is appropriate. She is orthopedically stable for discharge when medically ready. Full orthopedic discharge instructions were placed in the discharge summary. Carina Garcia was seen and examined at bedside this morning. Overall she is doing very well. She was actually sitting up in a chair at bedside when I came in this morning. She denies any much pain in the right hip. She has been able to put some weight on it. She has no complaints. Review of Systems All systems reviewed & are unremarkable except as noted in HPI & below. Physical Exam On physical examination of the right hip, 2 over the 3 dressings are clean and dry. One of the dressings has a little bit of bloody drainage. Her leg lengths are equal. She is not having much pain. Results & Data Results & Data Laboratory Results . Diagnostic Findings . PG Care Time/CCT Total # of Minutes Spent Total Time Spent with Patient: Total time spent is greater than 50% in coordination of care (as documented) at patient's floor/unit and/or counseling patient: Coding Level of Care Code 88384 Post Operative Follow-Up Diagnoses Closed fracture of right hip S72.001A Encounter type: initial encounter (1) Closed fracture of right hip Encounter type: initial encounter Qualified Code(s): S72.001A - Fracture of unspecified part of neck of right femur, initial encounter for closed fracture
[2022-01-02 06:38] LABS: Hematocrit (blood only) 31.6 % (37-47); Hemoglobin 10.2 g/dL (12.0-16.0); Mean Corpuscular Hemoglobin 29.3 pg (25-34); Mean Corpuscular Hgb Conc 32.3 g/dL (32-36); Mean Corpuscular Volume 90.8 fL (80-100); Platelet Count 141 K/uL (130-400); RDW Coefficient of Variation 14.1 % (11.5-14.5); RDW Standard Deviation 46.9 fL (36.4-46.3); Red Blood Count 3.48 M/uL (4.2-5.4); White Blood Count 14.42 K/uL (4.8-10.8)
[2022-01-02 06:58] LABS: BUN Creatinine Ratio 19.6 (10-20); Calcium 8.4 mg/dl (8.5-10.1); Creatinine Clr Calc Pharmacy 31.9 ml/min; Est GFR (African American) 54.8 ml/min; Est GFR (Non-African American) 47.3 ml/min; Potassium 4.2 mmol/L (3.5-5.1)
[2022-01-02] MEDS: GABAPENTIN 100 MG CAP PO SCH ×2 (08:46→20:52)
[2022-01-02] MEDS: MULTIVITAMIN TAB PO SCH (08:46)
[2022-01-02] MEDS: ACETAMINOPHEN 325 MG TAB PO SCH ×3 (08:46→20:52)
[2022-01-02] MEDS: ASPIRIN 81 MG ECTAB PO SCH ×2 (08:46→21:33)
[2022-01-02] MEDS: TRIAMTERENE/HCTZ 37.5/25MG TAB PO SCH (08:46)
[2022-01-02] MEDS: cefTRIAXone SODIUM 2,000 MG in DEXTROSE 5% 50 ML IV SCH (12:53)
--- NOTE | 2022-01-02 15:50 | Hospitalist Progress Note ---
Date of Service January 02, 2022 Assessment & Plan (1) Closed fracture of right hip: Plan: Right hip fracture - POD#1 Intramedullary Nail Fixation of Right Hip by Dr. Oconnell - activity and wound care orders as per ortho - pain control with bowel regimen -Pain management: acetaminophen 650mg TID, gabapentin 100mg BID, tramadol PRN for mod-severe pain Acute blood loss anemia -Preop Hgb 13.5 --> 10.2 -No indication for transfusion at this time UTI Culture growing gram-negative bacilli, ceftriaxone started HTN BP remains on the low side, continue to hold to triamterne/HCTZ History of lung nodules -OP follow up DVT prophylaxis ASA 81 mg twice daily as per Ortho Dispo - Likely discharge to [facility] versus [facility] in the next day or so. Admission and Anticipated Discharge Date Admission Date: December 31, 2021 Supervising Physician Co-Signing Physician Notes Patient was seen and evaluated independently. Chart was reviewed. Case was di scussed with CANDY. Agree with assessment and plan as above Subjective Patient seen and examined. Follow-up for right hip fracture s/p repair, acute b ullous anemia, UTI. Patient sitting up in the chair, having lunch. Reports her pain is well controlled. No chest pain or shortness of breath. Denies abdominal pain or nausea. Purdy catheter remains in place. + Flatus however no BM. Review of Systems Review of Systems: ROS per HPI, all other systems reviewed and negative Physical Exam Constitutional: WD/WN, vitals as above Respiratory: normal respiratory effort, lungs clear to auscultation Cardiovascular: Rate/Rhythm: regular rate and regular rhythm Vessels: normal peripheral pulses Extremities: no edema Gastrointestinal (Abdomen): Percussion/Palpation: abdomen soft; abdomen nontender Musculoskeletal: S/p right hip surgery, 1 dressing noted to be stained, CSM checks intact RLE Skin: no rashes, warm and dry Neurologic: no focal motor deficits Psychiatric: A+Ox3, euthymic affect Results & Data Results & Data ([facility]) Vital Signs (Past 12 Hours) Vital Signs Temp Pulse Resp BP Pulse Ox 01/02/22 15:07 36.5 C 103 H 18 91/60 L 96 01/02/22 07:53 36.9 C 95 H 18 91/55 L 95 01/02/22 05:49 94 01/02/22 04:00 36.4 C L 79 18 107/61 94 Laboratory Results Short CBC 01/02/22 Range/Units 06:10 WBC 14.42 H (4.8-10.8) K/uL Hgb 10.2 L (12.0-16.0) g/dL Hct 31.6 L (37-47) % Plt Count 141 (130-400) K/uL BMP 01/02/22 06:10 Sodium 139 Potassium 4.2 Chloride 105 Carbon Dioxide 27 BUN 21 Creatinine 1.07 Glucose 148 H Calcium 8.4 L (1) Closed fracture of right hip Encounter type: initial encounter Qualified Code(s): S72.001A - Fracture of unspecified part of neck of right femur, initial encounter for closed fracture
[2022-01-03 06:39] LABS: Hematocrit (blood only) 29.3 % (37-47); Hemoglobin 9.3 g/dL (12.0-16.0); Mean Corpuscular Hemoglobin 29.4 pg (25-34); Mean Corpuscular Hgb Conc 31.7 g/dL (32-36); Mean Corpuscular Volume 92.7 fL (80-100); Mean Platelet Volume 11.7 fL (7.4-10.4); Platelet Count 130 K/uL (130-400); RDW Coefficient of Variation 14.2 % (11.5-14.5); RDW Standard Deviation 47.6 fL (36.4-46.3); Red Blood Count 3.16 M/uL (4.2-5.4); White Blood Count 10.67 K/uL (4.8-10.8)
[2022-01-03] MEDS: GABAPENTIN 100 MG CAP PO SCH ×2 (08:47→21:01)
[2022-01-03] MEDS: MULTIVITAMIN TAB PO SCH (08:47)
[2022-01-03] MEDS: TRIAMTERENE/HCTZ 37.5/25MG TAB PO SCH (08:47)
[2022-01-03] MEDS: ACETAMINOPHEN 325 MG TAB PO SCH ×3 (08:47→21:01)
[2022-01-03] MEDS: cefTRIAXone SODIUM 2,000 MG in DEXTROSE 5% 50 ML IV SCH (08:49)
[2022-01-03] MEDS ORDERED: SENNA 8.6 MG TAB PO PRN (09:47)
[2022-01-03] MEDS: ASPIRIN 81 MG ECTAB PO SCH ×2 (09:57→21:02)
[2022-01-03] MEDS: POLYETHYLENE (MIRALAX) 17 GM PACK PO SCH (10:58)
[2022-01-03] MEDS: DOCUSATE SODIUM 100 MG CAP PO SCH ×2 (10:58→21:02)
--- NOTE | 2022-01-03 14:24 | Electrocardiogram Report ---
Test Reason : Blood Pressure : / mmHG Vent. Rate : 096 BPM Atrial Rate : 096 BPM P-R Int : 124 ms QRS Dur : 088 ms QT Int : 350 ms P-R-T Axes : 031 002 050 degrees QTc Int : 442 ms Normal sinus rhythm Minimal voltage criteria for LVH, may be normal variant Nonspecific ST and T wave abnormality Abnormal ECG When compared with ECG of 31-DEC-2021 22:40, No significant change was found Confirmed by Jay Elena ([id number]) on 01/03/2022 2:24:05 PM Referred By: REFERRED SELF Confirmed By:Jay Elena
--- NOTE | 2022-01-03 16:27 | Hospitalist Progress Note ---
Date of Service January 03, 2022 Assessment & Plan (1) Closed fracture of right hip: Plan: Right hip fracture - POD#2 Intramedullary Nail Fixation of Right Hip by Dr. Oconnell - activity and wound care orders as per ortho - pain control with bowel regimen -Pain management: acetaminophen 650mg TID, gabapentin 100mg BID, tramadol PRN for mod-severe pain Acute blood loss anemia -EBL 100cc -Preop Hgb 13.5 --> 10.2 --> 9.3 -No indication for transfusion at this time UTI Urine culture growing E. coli, ampicillin and fluoroquinolone resistant On ceftriaxone (day 2) Abnormal Heart Exam Heart rhythm auscultated to be somewhat irregular today, EKG demonstrates NSR HTN BP intermittently low, will discontinue triamterene/HCTZ History of lung nodules -OP follow up DVT prophylaxis ASA 81 mg twice daily as per Ortho Dispo - Likely discharge to [facility] versus [facility] in the next day or so. Admission and Anticipated Discharge Date Admission Date: December 31, 2021 Supervising Physician Co-Signing Physician Notes Patient was seen and examined independently. Chart was reviewed. Case was discussed with CANDY. Agree with assessment and plan as outlined above Subjective Patient seen and examined. Follow-up for right hip fracture s/p repair, acute bullous anemia, UTI. Patient sitting up in the chair. Reports her pain is well controlled. No chest pain or shortness of breath. Denies abdominal pain or nausea. Purdy removed, urinating without difficulty. + Flatus however no BM. Review of Systems Review of Systems: ROS per HPI, all other systems reviewed and negative Physical Exam Constitutional: WD/WN, vitals as above no acute distress Respiratory: normal respiratory effort, lungs clear to auscultation Cardiovascular: Rate/Rhythm: regular rate Vessels: normal peripheral pulses Extremities: no edema Heart rate seems somewhat irregular, EKG demonstrates NSR Gastrointestinal (Abdomen): Percussion/Palpation: abdomen soft; abdomen nontender Musculoskeletal: S/p right hip surgery, 3 surgical dressings noted 1 of which is stained, CSM checks intact RLE Skin: no rashes, warm and dry Neurologic: no focal motor deficits Psychiatric: A+Ox3, euthymic affect Results & Data Results & Data ([facility]) Vital Signs (Past 12 Hours) Vital Signs Temp Pulse Resp BP Pulse Ox 01/03/22 15:23 36.5 C 91 H 18 110/65 95 01/03/22 07:31 36.4 C L 93 H 18 103/67 93 Laboratory Results Short CBC 01/03/22 Range/Units 05:52 WBC 10.67 (4.8-10.8) K/uL Hgb 9.3 L (12.0-16.0) g/dL Hct 29.3 L (37-47) % Plt Count 130 (130-400) K/uL (1) Closed fracture of right hip Encounter type: initial encounter Qualified Code(s): S72.001A - Fracture of unspecified part of neck of right femur, initial encounter for closed fracture
[2022-01-04] MEDS: ACETAMINOPHEN 325 MG TAB PO SCH ×3 (08:21→20:31)
[2022-01-04] MEDS: ASPIRIN 81 MG ECTAB PO SCH ×2 (08:22→20:33)
[2022-01-04] MEDS: GABAPENTIN 100 MG CAP PO SCH ×2 (08:22→20:33)
[2022-01-04] MEDS: DOCUSATE SODIUM 100 MG CAP PO SCH ×2 (08:22→20:33)
[2022-01-04] MEDS: POLYETHYLENE (MIRALAX) 17 GM PACK PO SCH (08:23)
[2022-01-04] MEDS: MULTIVITAMIN TAB PO SCH (08:23)
[2022-01-04] MEDS: cefTRIAXone SODIUM 2,000 MG in DEXTROSE 5% 50 ML IV SCH (08:25)
[2022-01-04 08:33] LABS: Hematocrit (blood only) 25.4 % (37-47); Hemoglobin 8.4 g/dL (12.0-16.0)
--- NOTE | 2022-01-04 15:20 | Orthopedic Progress Note ---
Date of Service January 04, 2022 Assessment & Plan (1) Closed fracture of right hip: Overall she is doing fairly well. She denies any much pain in the right hip. She is been working well with physical therapy. She is on aspirin for DVT prophylaxis. She is orthopedically stable for discharge when medically ready. Full orthopedic discharge instructions were placed in the discharge summary. Carina Garcia was seen and examined at bedside today. She was sitting in a chair at bedside. She is not having too much pain in the right hip. She been working well with therapy. She has no complaints. . Review of Systems All systems reviewed & are unremarkable except as noted in HPI & below. Physical Exam On physical examination of the right hip, the dressings are mostly clean and dry. Her leg lengths are equal. She has active dorsiflexion and plantarflexion of her right ankle. . Results & Data Results & Data Laboratory Results . Diagnostic Findings . PG Care Time/CCT Total # of Minutes Spent Total Time Spent with Patient: Total time spent is greater than 50% in coordination of care (as documented) at patient's floor/unit and/or counseling patient: Coding Level of Care Code 99411 Post Operative Follow-Up Diagnoses Closed fracture of right hip S72.001A Encounter type: initial encounter (1) Closed fracture of right hip Encounter type: initial encounter Qualified Code(s): S72.001A - Fracture of unspecified part of neck of right femur, initial encounter for closed fracture
--- NOTE | 2022-01-04 15:50 | Hospitalist Progress Note ---
Date of Service January 04, 2022 Assessment & Plan (1) Closed fracture of right hip: Plan: Right hip fracture POD#3 Intramedullary Nail Fixation of Right Hip by Dr. Oconnell Activity and wound care orders as per ortho Pain control with bowel regimen Pain management: acetaminophen 650mg TID, gabapentin 100mg BID, tramadol PRN for mod-severe pain Acute blood loss anemia Preop Hgb 13.5 -> 10.2 -> 8.4 No lightheadedness, visual changes, CP No indication for transfusion at this time Continue to monitor with daily H/H UTI Culture growing E coli, receiving day 3 Rocephin. Consider transitioning to C efdinir tomorrow HTN BP remains on the low side, continue to hold to triamterne/HCTZ History of lung nodules OP follow up DVT prophylaxis ASA 81 mg twice daily as per Ortho Dispo - Likely discharge to [facility] on Saturday Admission and Anticipated Discharge Date Admission Date: December 31, 2021 Supervising Physician Co-Signing Physician Notes Patient was seen and evaluated independently. Case was discussed with CANDY. Agree with assessment and plan as above Subjective Patient seen and examined in 353-2. Follow-up for right hip fracture s/p repair, acute blood loss anemia, UTI. Hip pain improving, moving more easily with therapy. No F/C, lightheadedness, chest pain, SOB, N/V, abdominal pain, dysuria, diarrhea or constipation. Had a bowel movement last evening. Review of Systems Review of Systems: At least ten systems reviewed and negative except as noted in the HPI. Physical Exam Physical Exam: Gen: WD/WN, NAD, sitting in bedside chair, A&Ox3 HEENT: Normocephalic, atraumatic, conjunctivae moist, sclerae anicteric, mucous membranes moist Lung: Clear to Auscultation bilaterally, no wheezes/rales/rhonchi Heart: Regular rate, regular rhythm, no murmurs, rubs, or gallops Abdomen: Soft, NT, ND +BS x 4 Extremities: R hip surgery, 3 surgical dressings noted 1 of which is stained, distal RLE NVI Skin: Warm, no rash Results & Data Results & Data ([place]) Vital Signs (Past 12 Hours) Vital Signs Temp Pulse Pulse Resp BP BP Pulse Ox 01/04/22 15:15 36.7 C 94 H 16 108/54 L 95 02/17/22 08:01 36.3 C L 90 15 130/70 95 Laboratory Results Short CBC 01/04/22 Range/Units 07:58 Hgb 8.4 L (12.0-16.0) g/dL Hct 25.4 L (37-47) % Diagnostic Findings Chest X-Ray 12/31/21 22:04 XR chest 1V portable CLINICAL HISTORY: fall, hip fracture. Evaluate cardiopulmonary status COMPARISON STUDY: No previous studies for comparison. TECHNIQUE: 1 view of the chest FINDINGS: Single frontal view of the chest demonstrates the cardiomediastinal silhouette to be within normal limits. There is evidence for hiatal hernia in retrocardiac space. The lungs are clear of alveolar opacities. There is no evidence for pleural effusion. There is no evidence for vascular congestion. There is no acute osseous pathology. IMPRESSION: No acute cardiopulmonary disease. Hiatal hernia. ACT 112: Negative or not required by law. Electronically signed by: Ozzie Do M.D. 12/31/2021 10:47 PM Femur X-Ray 12/31/21 22:04 XR femur RT 2V routine CLINICAL HISTORY: right hip/femur pain. Status post fall COMPARISON STUDY: No previous studies for comparison. TECHNIQUE: AP and lateral right femur views FINDINGS: Bones: There is a comminuted, intratrochanteric fracture of the left femoral neck. The lesser trochanter is medially displaced. There is coxa varus deformity present. There is no lytic or blastic lesion. Joints: The femoral head maintains its anatomic position within the acetabulum. There is moderate to marked narrowing at the knee joint. Soft tissues: There is no focal soft tissue abnormality. There is no radiopaque foreign body. IMPRESSION: 1. Comminuted, intratrochanteric fracture of the right femoral neck with coxa varus deformity. ACT 112: Negative or not required by law. Electronically signed by: Ozzie Do M.D. 12/31/2021 10:45 PM Pelvis X-Ray 12/31/21 22:04 XR pelvis 1-2V routine CLINICAL HISTORY: fall right thigh pain. Status post fall COMPARISON STUDY: Right femur films from the same date TECHNIQUE: [A single AP radiograph was obtained. FINDINGS: There is again a comminuted, intratrochanteric fracture of the right femoral neck. The femoral head maintains its anatomic position within the acetabulum. Coxa varus deformity is present related to the fracture. The SI joints are intact bilaterally. There is mild to moderate narrowing of the left hip joint space. The remaining visualized bones of the pelvis are intact. No focal soft tissue abnormalities identified. IMPRESSION: 1. Comminuted, intratrochanteric fracture of the right femoral neck with coxa varus deformity. ACT 112: Negative or not required by law. Electronically signed by: Ozzie Do M.D. 12/31/2021 10:47 PM Hip X-Ray 01/01/22 14:30 FL hip RT 2-3V HISTORY: 86 years-old Female RT LONG TROCH NAIL acute fracture of the right hip COMPARISON: Right femur radiographs 12/31/2021 TECHNIQUE: 4 spot fluoroscopic images of the right hip were obtained utilizing 92.6 seconds fluoroscopy time. FINDINGS: Intratrochanteric nail with medullary terrance fixating the acute intertrochanteric fracture. There is improved alignment with mild persistent medial displacement of the lesser trochanteric fracture fragment. Right hip osteoarthritis. Expected postoperative soft tissue swelling with deep tissue air. No unexpected opaque foreign body. IMPRESSION: Fluoroscopic assistance as above. ACT 112: Negative or not required by law. The above report was generated using voice recognition software. It may contain grammatical, syntax or spelling errors. Electronically signed by: Dariel Cagle M.D. 01/01/2022 6:03 PM (1) Closed fracture of right hip Encounter type: initial encounter Qualified Code(s): S72.001A - Fracture of unspecified part of neck of right femur, initial encounter for closed fracture
[2022-01-05 06:32] LABS: Hematocrit (blood only) 25.9 % (37-47); Hemoglobin 8.5 g/dL (12.0-16.0)
[2022-01-05] MEDS: ASPIRIN 81 MG ECTAB PO SCH ×2 (08:17→20:04)
[2022-01-05] MEDS: MULTIVITAMIN TAB PO SCH (08:17)
[2022-01-05] MEDS: DOCUSATE SODIUM 100 MG CAP PO SCH ×2 (08:17→20:03)
[2022-01-05] MEDS: ACETAMINOPHEN 325 MG TAB PO SCH ×3 (08:17→20:04)
[2022-01-05] MEDS: POLYETHYLENE (MIRALAX) 17 GM PACK PO SCH (08:18)
[2022-01-05] MEDS: cefTRIAXone SODIUM 2,000 MG in DEXTROSE 5% 50 ML IV SCH (08:18)
[2022-01-05] MEDS: GABAPENTIN 100 MG CAP PO SCH ×2 (08:18→20:03)
--- NOTE | 2022-01-05 13:42 | Hospitalist Progress Note ---
Date of Service January 05, 2022 Assessment & Plan (1) Closed fracture of right hip: Plan: Right hip fracture s/p intramedullary Nail Fixation of Right Hip 01/[address] Oconnell Activity and wound care orders as per ortho Pain control with bowel regimen Pain management: acetaminophen 650mg TID, gabapentin 100mg BID, tramadol PRN for mod-severe pain Acute blood loss anemia Preop Hgb 13.5 -> 10.2 -> 8.4 Continue to monitor with daily H/H UTI Culture growing E coli, receiving day 3 Rocephin. Consider transitioning to Cefdinir tomorrow HTN BP remains on the low side, continue to hold to triamterne/HCTZ start NSS at 80cc/hr x 24 hours History of lung nodules OP follow up DVT prophylaxis ASA 81 mg twice daily as per Ortho Dispo - Likely discharge to [facility] on Saturday Admission and Anticipated Discharge Date Admission Date: December 31, 2021 Subjective Feels well Per nursing, patient noted to have mild +orthostatics when working with PT (patient does report feeling light headed when standing on prior days) Patient is not eating as much as at home, and her BP overall has been lower Physical Exam Physical Exam: appears well. Sitting in chair, pleasant and comfortable Respiratory: breathing comfortably on room air, no wheezing/rhonchi/rales Cardiovascular: regular rate and rhythm, no murmurs/rubs/gallops Gastrointestinal (Abdomen): soft, non tender, non distended Musculoskeletal: no edema Neurologic: awake, alert Results & Data Results & Data ([facility]) Vital Signs (Past 12 Hours) Vital Signs Temp Pulse Resp BP Pulse Ox 01/05/22 11:32 112 H 92/57 L 01/05/22 11:29 98 H 112/70 01/05/22 11:26 89 94/61 L 01/05/22 07:52 36.8 C 106 H 16 131/72 95 Laboratory Results Short CBC 01/05/22 Range/Units 06:19 Hgb 8.5 L (12.0-16.0) g/dL Hct 25.9 L (37-47) % Medications Administered Current Inpatient Medications Acetaminophen (Acetaminophen 325 Mg Tab) 650 mg PO TID JEFF Stop: 01/08/22 20:59 Last Admin: 01/05/22 08:17 Dose: 650 mg Documented by: Aspirin (Aspirin 81 Mg Ectab) 81 mg PO BID [facility] Stop: 01/31/22 20:59 Last Admin: 01/05/22 08:17 Dose: 81 mg Documented by: Bisacodyl (Bisacodyl 10 Mg Supp) 10 mg [place] DAILY PRN PRN Reason: Constipation Stop: 01/31/22 00:07 Docusate Sodium (Docusate Sodium 100 Mg Cap) 100 mg PO BID [facility] Stop: 02/02/22 09:59 Last Admin: 01/05/22 08:17 Dose: 100 mg Documented by: Gabapentin (Gabapentin 100 Mg Cap) 100 mg PO BID [facility] Stop: 01/31/22 20:59 Last Admin: 01/05/22 08:18 Dose: 100 mg Documented by: Promethazine HCl 12.5 mg/ (Sodium Chloride) 50.5 mls @ 202 mls/hr IV Q6H PRN PRN Reason: Nausea And Vomiting Stop: 01/30/22 23:53 Ceftriaxone Sodium 2,000 mg/ (Dextrose) 70 mls @ 100 mls/hr IV DAILY [facility]; Protocol Stop: 01/07/22 12:29 Last Infusion: 01/05/22 09:00 Dose: Infused Documented by: Sodium Chloride (Nss) 500 mls @ 80 mls/hr IV .Q6H15M [facility] Stop: 02/04/22 12:29 Multivitamins (Multivitamin Tab) 1 tab PO QAM [facility] Stop: 01/31/22 08:59 Last Admin: 01/05/22 08:17 Dose: 1 tab Documented by: Naloxone HCl (Naloxone Hcl 0.4 Mg/1 Ml Vial/Carp) 0.1 mg IV UD PRN PRN Reason: Opiate Overdose Stop: 01/31/22 00:07 Oxycodone HCl (Oxycodone Hcl Ir 5 Mg Tab (Immediate Release)) 5 mg PO Q6H PRN PRN Reason: Pain 6,7,8,9,10 Stop: 01/15/22 17:38 Polyethylene Glycol (Polyethylene (Miralax) 17 Gm Pack) 17 gm PO DAILY [facility] Stop: 02/02/22 09:59 Last Admin: 01/05/22 08:18 Dose: 17 gm Documented by: Sennosides (Senna 8.6 Mg Tab) 8.6 mg PO DAILY PRN PRN Reason: constipation Stop: 02/02/22 09:59 Tramadol HCl (Tramadol Hcl 50 Mg Tablet) 50 mg PO Q4H PRN PRN Reason: Pain 2,3,4,5 Stop: 01/31/22 17:38 Last Admin: 01/02/22 19:23 Dose: 50 mg Documented by: (1) Closed fracture of right hip Encounter type: initial encounter Qualified Code(s): S72.001A - Fracture of unspecified part of neck of right femur, initial encounter for closed fracture
[2022-01-05] MEDS: SODIUM CHLORIDE 0.9% 500 ML IV SCH ×2 (13:54→17:37)
[2022-01-06] MEDS: SODIUM CHLORIDE 0.9% 500 ML IV SCH ×2 (02:00→07:29)
[2022-01-06 06:19] LABS: Hematocrit (blood only) 25.3 % (37-47); Hemoglobin 8.2 g/dL (12.0-16.0); Mean Corpuscular Hemoglobin 29.2 pg (25-34); Mean Corpuscular Hgb Conc 32.4 g/dL (32-36); Mean Platelet Volume 10.6 fL (7.4-10.4); Platelet Count 156 K/uL (130-400); RDW Coefficient of Variation 14.1 % (11.5-14.5); RDW Standard Deviation 47.2 fL (36.4-46.3); Red Blood Count 2.81 M/uL (4.2-5.4); White Blood Count 6.58 K/uL (4.8-10.8)
[2022-01-06 06:45] LABS: BUN Creatinine Ratio 37.2 (10-20); Calcium 7.8 mg/dl (8.5-10.1); Creatinine Clr Calc Pharmacy 36.3 ml/min; Est GFR (African American) 64.1 ml/min; Est GFR (Non-African American) 55.3 ml/min; Potassium 3.7 mmol/L (3.5-5.1)
[2022-01-06] MEDS: GABAPENTIN 100 MG CAP PO SCH ×2 (07:42→19:53)
[2022-01-06] MEDS: DOCUSATE SODIUM 100 MG CAP PO SCH ×2 (07:42→19:52)
[2022-01-06] MEDS: cefTRIAXone SODIUM 2,000 MG in DEXTROSE 5% 50 ML IV SCH (07:42)
[2022-01-06] MEDS: ASPIRIN 81 MG ECTAB PO SCH ×2 (07:42→19:53)
[2022-01-06] MEDS: POLYETHYLENE (MIRALAX) 17 GM PACK PO SCH (07:43)
[2022-01-06] MEDS: ACETAMINOPHEN 325 MG TAB PO SCH ×3 (07:43→19:53)
[2022-01-06] MEDS: MULTIVITAMIN TAB PO SCH (07:43)
--- NOTE | 2022-01-06 14:57 | Hospitalist Progress Note ---
Date of Service January 06, 2022 Assessment & Plan (1) Closed fracture of right hip: Plan: Right hip fracture s/p intramedullary Nail Fixation of Right Hip 01/[address] Oconnell Activity and wound care orders as per ortho Pain control with bowel regimen Pain management: acetaminophen 650mg TID, gabapentin 100mg BID, tramadol PRN for mod-severe pain Acute blood loss anemia Preop Hgb 13.5 -> 10.2 -> 8.4 Continue to monitor with daily H/H UTI Culture growing E coli, receiving day 3 Rocephin. Consider transitioning to Cefdinir tomorrow HTN Now with orthostatic hypotension -orthostasis resolved after IVF. continue to hold HCTZ/lisinopril for now History of lung nodules OP follow up DVT prophylaxis ASA 81 mg twice daily as per Ortho Dispo - Patient is medically stable for discharge pending [facility] ([facility]) Admission and Anticipated Discharge Date Admission Date: December 31, 2021 Subjective yesterday felt light headed when working with PT (+orthostatic hypotension at the time) Received IVF overnight with improvement in BP Feels well today Reports lunch was the first meal she finished completely since being here Physical Exam Physical Exam: sitting in chair, pleasant and engaged Respiratory: breathing comfortably on room air, no wheezing/rhonchi/rales Cardiovascular: regular rate and rhythm, no murmurs/rubs/gallops Gastrointestinal (Abdomen): soft, non tender, non distended Musculoskeletal: no edema Neurologic: awake, alert, spontaneously moving extremities Results & Data Results & Data ([facility]) Vital Signs (Past 12 Hours) Vital Signs Temp Pulse Resp BP Pulse Ox 01/06/22 07:39 36.3 C L 48 L 16 145/70 H 96 Laboratory Results Short CBC 01/06/22 Range/Units 05:44 WBC 6.58 (4.8-10.8) K/uL Hgb 8.2 L (12.0-16.0) g/dL Hct 25.3 L (37-47) % Plt Count 156 (130-400) K/uL BMP 01/06/22 05:44 Sodium 140 Potassium 3.7 Chloride 108 H Carbon Dioxide 26 BUN 35 H Creatinine 0.94 Glucose 125 H Calcium 7.8 L Medications Administered Current Inpatient Medications Acetaminophen (Acetaminophen 325 Mg Tab) 650 mg PO TID JEFF Stop: 01/08/22 20:59 Last Admin: 01/06/22 14:26 Dose: 650 mg Documented by: Aspirin (Aspirin 81 Mg Ectab) 81 mg PO BID [facility] Stop: 01/31/22 20:59 Last Admin: 01/06/22 07:42 Dose: 81 mg Documented by: Bisacodyl (Bisacodyl 10 Mg Supp) 10 mg [place] DAILY PRN PRN Reason: Constipation Stop: 01/31/22 00:07 Docusate Sodium (Docusate Sodium 100 Mg Cap) 100 mg PO BID [facility] Stop: 02/02/22 09:59 Last Admin: 01/06/22 07:42 Dose: 100 mg Documented by: Gabapentin (Gabapentin 100 Mg Cap) 100 mg PO BID [facility] Stop: 01/31/22 20:59 Last Admin: 01/06/22 07:42 Dose: 100 mg Documented by: Promethazine HCl 12.5 mg/ (Sodium Chloride) 50.5 mls @ 202 mls/hr IV Q6H PRN PRN Reason: Nausea And Vomiting Stop: 01/30/22 23:53 Multivitamins (Multivitamin Tab) 1 tab PO QAM [facility] Stop: 01/31/22 08:59 Last Admin: 01/06/22 07:43 Dose: 1 tab Documented by: Naloxone HCl (Naloxone Hcl 0.4 Mg/1 Ml Vial/Carp) 0.1 mg IV UD PRN PRN Reason: Opiate Overdose Stop: 01/31/22 00:07 Oxycodone HCl (Oxycodone Hcl Ir 5 Mg Tab (Immediate Release)) 5 mg PO Q6H PRN PRN Reason: Pain 6,7,8,9,10 Stop: 01/15/22 17:38 Polyethylene Glycol (Polyethylene (Miralax) 17 Gm Pack) 17 gm PO DAILY [facility] Stop: 02/02/22 09:59 Last Admin: 01/06/22 07:43 Dose: 17 gm Documented by: Sennosides (Senna 8.6 Mg Tab) 8.6 mg PO DAILY PRN PRN Reason: constipation Stop: 02/02/22 09:59 Tramadol HCl (Tramadol Hcl 50 Mg Tablet) 50 mg PO Q4H PRN PRN Reason: Pain 2,3,4,5 Stop: 01/31/22 17:38 Last Admin: 01/02/22 19:23 Dose: 50 mg Documented by: (1) Closed fracture of right hip Encounter type: initial encounter Qualified Code(s): S72.001A - Fracture of unspecified part of neck of right femur, initial encounter for closed fracture
[2022-01-07] MEDS: POLYETHYLENE (MIRALAX) 17 GM PACK PO SCH (08:31)
[2022-01-07] MEDS: ASPIRIN 81 MG ECTAB PO SCH ×2 (08:51→19:52)
[2022-01-07] MEDS: GABAPENTIN 100 MG CAP PO SCH ×2 (08:51→19:52)
[2022-01-07] MEDS: DOCUSATE SODIUM 100 MG CAP PO SCH ×2 (08:51→19:52)
[2022-01-07] MEDS: ACETAMINOPHEN 325 MG TAB PO SCH ×3 (08:51→19:52)
[2022-01-07] MEDS: MULTIVITAMIN TAB PO SCH (08:51)
--- NOTE | 2022-01-07 12:29 | Ultrasound Report ---
US venous doppler LE RT HISTORY: 86 years-old Female evaluate for DVT acute pain and swelling of the right lower extremity COMPARISON: None TECHNIQUE: Multiple real-time sonographic images of the right lower extremity deep venous structures were obtained assessing grayscale appearance, color and spectral flow. FINDINGS: Normal flow, compressibility, phasicity and augmentation. Complex Jasso's cyst measures 5.9 x 5.1 x 3 .4 cm. IMPRESSION: No sonographic evidence of deep venous thrombosis. ACT 112: Negative or not required by law. The above report was generated using voice recognition software. It may contain grammatical, syntax o r spelling errors. Electronically signed by: Dariel Cagle M.D. 01/07/2022 12:27 PM
--- NOTE | 2022-01-07 15:52 | Hospitalist Progress Note ---
Date of Service January 07, 2022 Assessment & Plan (1) Closed fracture of right hip: Plan: Right hip fracture s/p intramedullary Nail Fixation of Right Hip 01/[address] Oconnell Activity and wound care orders as per ortho Pain control with bowel regimen Pain management: acetaminophen 650mg TID, gabapentin 100mg BID, tramadol PRN for mod-severe pain On aspirin for DVT ppx per ortho Right leg swelling-- LE u/s negative for DVT. Patient advised to keep leg elevated (she spends her day sitting in chair)--nursing will bring in foot rest Acute blood loss anemia Preop Hgb 13.5 -> 10.2 -> 8.4 Continue to monitor with daily H/H UTI Culture growing E coli, s/p 5 days ceftriaxone HTN Now with orthostatic hypotension -orthostasis resolved after IVF. continue to hold HCTZ/lisinopril for now History of lung nodules OP follow up DVT prophylaxis ASA 81 mg twice daily as per Ortho Dispo - Patient is medically stable for discharge pending placement to [facility] (likely Saturday) Admission and Anticipated Discharge Date Admission Date: December 31, 2021 Subjective Reports right leg swelling but otherwise feels well Physical Exam Physical Exam: sitting in chair, pleasant and comfortable Respiratory: breathing comfortably on room air, no wheezing/rhonchi/rales Cardiovascular: regular rate and rhythm, no murmurs/rubs/gallops Gastrointestinal (Abdomen): soft, non tender, non distended Musculoskeletal: 1+ edema right leg Neurologic: awake, alert Results & Data Results & Data ([facility]) Vital Signs (Past 12 Hours) Vital Signs Temp Pulse Resp BP Pulse Ox 01/07/22 07:31 36.6 C 76 18 134/70 96 Medications Administered Current Inpatient Medications Acetaminophen (Acetaminophen 325 Mg Tab) 650 mg PO TID [facility] Stop: 01/08/22 20:59 Last Admin: 01/07/22 12:49 Dose: 650 mg Documented by: Aspirin (Aspirin 81 Mg Ectab) 81 mg PO BID [facility] Stop: 01/31/22 20:59 Last Admin: 01/07/22 08:51 Dose: 81 mg Documented by: Bisacodyl (Bisacodyl 10 Mg Supp) 10 mg [place] DAILY PRN PRN Reason: Constipation Stop: 01/31/22 00:07 Docusate Sodium (Docusate Sodium 100 Mg Cap) 100 mg PO BID [facility] Stop: 02/02/22 09:59 Last Admin: 01/07/22 08:51 Dose: 100 mg Documented by: Gabapentin (Gabapentin 100 Mg Cap) 100 mg PO BID [facility] Stop: 01/31/22 20:59 Last Admin: 01/07/22 08:51 Dose: 100 mg Documented by: Promethazine HCl 12.5 mg/ (Sodium Chloride) 50.5 mls @ 202 mls/hr IV Q6H PRN PRN Reason: Nausea And Vomiting Stop: 01/30/22 23:53 Multivitamins (Multivitamin Tab) 1 tab PO QAM [facility] Stop: 01/31/22 08:59 Last Admin: 01/07/22 08:51 Dose: 1 tab Documented by: Naloxone HCl (Naloxone Hcl 0.4 Mg/1 Ml Vial/Carp) 0.1 mg IV UD PRN PRN Reason: Opiate Overdose Stop: 01/31/22 00:07 Oxycodone HCl (Oxycodone Hcl Ir 5 Mg Tab (Immediate Release)) 5 mg PO Q6H PRN PRN Reason: Pain 6,7,8,9,10 Stop: 01/15/22 17:38 Polyethylene Glycol (Polyethylene (Miralax) 17 Gm Pack) 17 gm PO DAILY [facility] Stop: 02/02/22 09:59 Last Admin: 01/07/22 08:31 Dose: Not Given Documented by: Sennosides (Senna 8.6 Mg Tab) 8.6 mg PO DAILY PRN PRN Reason: constipation Stop: 02/02/22 09:59 Tramadol HCl (Tramadol Hcl 50 Mg Tablet) 50 mg PO Q4H PRN PRN Reason: Pain 2,3,4,5 Stop: 01/31/22 17:38 Last Admin: 01/02/22 19:23 Dose: 50 mg Documented by: (1) Closed fracture of right hip Encounter type: initial encounter Qualified Code(s): S72.001A - Fracture of unspecified part of neck of right femur, initial encounter for closed fracture
[2022-01-08] MEDS: ASPIRIN 81 MG ECTAB PO SCH (09:08)
[2022-01-08] MEDS: DOCUSATE SODIUM 100 MG CAP PO SCH (09:08)
[2022-01-08] MEDS: MULTIVITAMIN TAB PO SCH (09:08)
[2022-01-08] MEDS: GABAPENTIN 100 MG CAP PO SCH (09:08)
[2022-01-08] MEDS: POLYETHYLENE (MIRALAX) 17 GM PACK PO SCH ×2 (09:09→09:11)
[2022-01-08] MEDS: ACETAMINOPHEN 325 MG TAB PO SCH ×2 (09:09→15:07)
--- NOTE | 2022-01-08 14:21 | Discharge Summary ---
Date of Service January 08, 2022 Admission HPI Per Admitting Provider History obtained from patient, family, and records. Medical history significant for hypertension, GERD, osteoarthritis Last confinement 2011 for elective left total knee arthroplasty. Patient was walking to her kitchen today when she slipped and fell on her right side. Achy right hip pain after patient heard a loud crack. Patient unable to get up from the floor. No head trauma, LOC, chest pain, shortness of breath. No abdominal pain or dysuria symptoms. Patient brought to the ER for evaluation. IV ceftriaxone given for pyuria. MEDICAL HISTORY: As above. Focal multilobular solid 8 mm nodule versus cluster of micronodules in the lateral basal left lower lobe. Follow-up per Fleischner Society 2017 criteria as if for an 8 mm solid nodule from CAT scan from [facility] ER visit SURGICAL HISTORY: Lipoma surgery, Ovarian cysts surgery, Bilateral tubal ligation, knee surgery, ear surgery FAMILY HISTORY: High blood pressure. DM, heart disease PERSONAL SOCIAL HISTORY: Nonsmoker. No chronic intake of alcoholic beverages. 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 Baseline Functionality : Still able to do housework at home without rest/exertional chest pain, S OB prior to injury Admission Exam Per Admitting Provider GENERAL: Comfortable, pleasant, no respiratory distress SKIN: Normal color, warm HEENT: [place] palpebral conjunctivae, no ptosis, dry buccal mucosa NECK : Supple, no tenderness CHEST : CTA, no tenderness HEART : RRR, no obvious murmurs ABDOMEN: Some distention, nontender EXTREMITIES : min LE swelling, right hip rotation and tenderness NEUROLOGIC : Coherent, no facial asymmetry, no other gross focality Principal Diagnosis Right hip fracture--closed, status post intramedullary nail fixation of right hip 01/[address] Oconnell Acute blood loss anemia UTI status post treatment. Discharge Exam GENERAL: Alert and oriented x3. NAD, on RA. HEENT: No pallor, no icterus. Pupils equal, round and reactive to light. Oral mucosa moist. NECK: No JVD, no neck masses. HEART: S1 and S2 heard. Regular rate and rhythm. No murmur, no gallop. RESPIRATORY SYSTEM: Normal AP diameter. No accessory muscle use. No wheezing, no crackles. ABDOMEN: Soft, bowel sounds present, nontender, no distention. CENTRAL NERVOUS SYSTEM: No facial droop. Speech is clear. Obeys simple commands. Moves extremities. EXTREMITIES: 1+ RLE edema, Trace LLE edema, no erythema seen. Right hip dressing without soakage. Discharge Data Allergies Allergy/AdvReac Type Severity Reaction Status Date / Time NSAIDS (Non-Steroidal AdvReac NOT true Unverified 12/31/21 23:07 Anti-Inflamma ADR-NO NSAIDS/Toradol per ortho [id number] 05/2012 Procedures Performed Operation Date: 01/01/22 13:05 Actual Procedures p Intramedullary Nail Fixation of Right Hip(Right) - Shawn Oconnell, Ordered Studies 01/01/22 14:30 FL hip RT 2-3V Routine 01/07/22 11:14 US venous doppler LE RT Routine Hospital Course (1) Closed fracture of right hip: Patient was treated for the following while in hospital: Right hip fracture s/p intramedullary Nail Fixation of Right Hip 01/[address] Oconnell Activity and wound care orders as per ortho Pain control with bowel regimen, close follow-up with PCP as an outpatient for ongoing evaluation of pain medications. Pain management: acetaminophen 650mg TID, gabapentin 100mg BID, tramadol PRN for mod-severe pain On aspirin for DVT ppx per ortho, given for 5 more weeks upon discharge. Right leg swelling-- LE u/s negative for DVT. Patient advised to keep leg elevated (she spends her day sitting in chair) Acute blood loss anemia Preop Hgb 13.5 -> 10.2 -> 8.4 --> 8.2 Hemoglobin stayed stable above 8, patient to get blood work CBC done in a week time upon discharge to ensure stability of hemoglobin. UTI Culture growing E coli, s/p 5 days ceftriaxone HTN Occasional elevations in blood pressure noted, patient's home medication regimen, continue to maintain blood pressure log as an outpatient and take it to primary care physician for further evaluation of blood pressure medications. History of lung nodules OP follow up DVT prophylaxis ASA 81 mg twice daily as per Ortho [facility] is [facility] with following instruction at the point of discharge: Follow-up with your primary care physician within a week time. You will need your pain medications evaluation as an outpatient with your primary care physician. Get your blood work CBC done in a week time. Continue with exercises as recommended by orthopedics. You are started on aspirin 81 mg twice a day for DVT prophylaxis for at least 6 weeks from surgery date. You had your surgery on 01/[address] Oconnell. Follow-up with orthopedics in 2 to 3 weeks after surgery date. Maintain outpatient follow-up with pulmonology for lung nodules. Maintain blood pressure log, measure blood pressure twice a day, take the blood pressure log to your primary care physician for further evaluation of your blood pressure medications. Take your medications as prescribed. Total Time Total Time Spent Total Time Spent (In Minutes): 40 Discharge Plan Discharge Items Patient Disposition: Transfer [facility] Fac Reason For Visit: RT FEM FX Discharge Diagnosis: Right hip fracture--closed, status post intramedullary nail fixation of right hip 01/[address] Oconnell Acute blood loss anemia UTI status post treatment. Activity: Per Instructions section Non-emergency contact: Primary Care Provider Call non-emergency contact if: you have any medication questions, your pain is not controlled and your temperature is above 101 Follow-up/Referrals: Kwesi Orozco MD [Primary Care Provider] - Diet: Heart Healthy Add Attending Provider Instructions: Follow-up with your primary care physician within a week time. You will need your pain medications evaluation as an outpatient with your primary care physician. Get your blood work CBC done in a week time. Continue with exercises as recommended by orthopedics. You are started on aspirin 81 mg twice a day for DVT prophylaxis for at least 6 weeks from surgery date. You had your surgery on 01/[address] Oconnell. Follow-up with orthopedics in 2 to 3 weeks after surgery date. Maintain outpatient follow-up with pulmonology for lung nodules. Maintain blood pressure log, measure blood pressure twice a day, take the blood pressure log to your primary care physician for further evaluation of your blood pressure medications. Take your medications as prescribed. 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 You were shown a series of exercises in the hospital. Do these exercises three times each day if you are able. 2. Get up and walk several times each day if you are capable. Make sure you have assistance is needed. For the first four weeks, try not to stand or walk for more than one hour at a time. If you do stand or walk for more than one hour, you will not hurt anything, but your leg will likely swell. 3. As you feel comfortable, you may change from the walker or crutches to a cane and then to independent walking if you are able. Please be safe. Medications: 1. Narcotic You will likely be sent from the hospital with the narcotic pain medication that worked best throughout your stay. 2. Aspirin -you will need to take aspirin 81 mg twice a day for DVT prophylaxis for 6 weeks 3. Other medications may be given for specific circumstances. If you have any questions, please call the office at [phone]. 4. Resume previous home medications unless otherwise instructed TEDs/Elastic Stockings: The white elastic stockings help limit swelling and prevent blood clots from forming in your legs. The more you wear them, the more they work. Wear them for six weeks. Dressing Care: Jose can be open to air as long as the incisions are not draining. If the incisions are draining or if the jose are getting caught on your clothes then please cover the jose with dry gauze. Change the dressings as necessary to keep the incision as dry as possible Showering: You may shower 5 days from the day of surgery as long as the incisions are not draining. Do not soak the incision. Let soapy water run over the jose and pat them dry. Things To Watch For: 1. Drainage from the incision site that occurs more than one week after your surgery. 2. Increased redness at the incision site. 3. Fever above 102 degrees Fahrenheit. 4. Unusual chest pain or shortness of breath. 5. Call [facility] at with any of the above problems Follow-Up Visit: Follow-up with Dr. Oconnell's PA (Shawn Hassan) 2-3 weeks after your day of surgery. He will remove your jose and answer any questions. If you have any additional questions or concerns, Dr Oconnell is usually in the office at the same time and will be available Please call to make an appointment for a time that works for you Pending Studies at Discharge: No Stand-Alone Forms: My [facility] Skilled Items Patient informed of condition?: Yes DNR: No Discharge Level of Care: Skilled Communicable Disease: No Discharge Prognosis: Stable Lines: None Urinary Catheter: No Medications and DC Order Prescriptions: New acetaminophen 325 mg Tablet 650 mg PO TID 14 Days Qty: 84 RF: 0 aspirin 81 mg Tablet,Delayed Release (Dr/Ec) 81 mg PO BID 35 Days Qty: 70 RF: 0 gabapentin 100 mg Capsule 100 mg PO BID 14 Days Qty: 28 RF: 0 tramadol 50 mg Tablet 50 mg PO Q8H PRN (Reason: severe pain (scale score 7-10)) 3 Days Qty: 9 RF: 0 docusate sodium 100 mg Capsule 100 mg PO BID 7 Days Qty: 14 RF: 0 sennosides [Senokot] 8.6 mg Tablet 8.6 mg PO DAILY PRN (Reason: constipation) 7 Days Qty: 7 RF: 0 Continued multivitamin Tablet 1 tab PO DAILY Qty: 0 RF: 0 triamterene-hydrochlorothiazid 37.5-25 mg Tablet 1 tab PO DAILY Qty: 0 RF: 0 Discharge Orders: Discharge Order (Routine); Ordered 01/08/22 Ordered By: Adrienne Perez Admission Data Admit Date/Time: 12/31/21 23:51 Attending Provider: Adrienne Perez Admit Provider: Dwight Fagan Primary Care Provider: Kwesi Orozco Other Providers: John Boothe [place] ; [place] [facility]
== END 2022-01-08 15:11 | DRG 481 ==
LOC: ED 21:54 → SUATTDRO 23:51 → 3W 23:51